=== PATIENT | male | born 1940 | race Caucasian/White ===

== ENCOUNTER → 2018-02-02 09:43 | Outpatient (BNVA) | payer MEDICARE, OTHER, SELFPAY | PROVIDERS: Visit Provider Urology | DX: N40.0 Benign prostatic hyperplasia without lower urinary tract symptoms (principal); R31.9 Hematuria, unspecified; R97.20 Elevated prostate specific antigen [PSA] | CPT/HCPCS: 99213 ==

== ENCOUNTER 2018-08-03 11:28 | Outpatient (CLI) | payer MEDICARE, OTHER, SELFPAY ==
[2018-08-06 09:45] LABS: PSA, Diagnostic 1.9 ng/ml (0-6.5)
== END 2018-08-03 11:48 ==
PROVIDERS: PCP Emergency Medicine; Visit Provider Urology
DX: R97.20 Elevated prostate specific antigen [PSA] (principal)
CPT/HCPCS: 36415; 84153

== ENCOUNTER → 2018-08-07 10:52 | Outpatient (BNVA) | payer MEDICARE, OTHER, SELFPAY | PROVIDERS: PCP Emergency Medicine; Visit Provider Urology | DX: R97.20 Elevated prostate specific antigen [PSA] (principal); R31.29 Other microscopic hematuria | CPT/HCPCS: 99213 ==

== ENCOUNTER 2018-09-21 09:05 | Outpatient (CLI) | payer MEDICARE, OTHER, SELFPAY ==
--- NOTE | 2018-09-21 14:19 | DI.RAD_ITS ---
SYMPTOMS/DIAGNOSIS: DYSPNEA ON EXERTION, R06.09 CHEST X-RAY, PA AND LATERAL: Comparison is 09/15/15. The heart is normal in size. The lungs are clear. The mediastinal structures and pleura appear intact. SUMMARY: Normal chest.
== END 2018-09-21 09:25 ==
PROVIDERS: PCP Emergency Medicine; Visit Provider Emergency Medicine
DX: R06.09 Other forms of dyspnea (principal)
CPT/HCPCS: 71046

== ENCOUNTER 2018-10-08 10:31 | Outpatient (CLI) | payer MEDICARE, OTHER, SELFPAY ==
--- NOTE | 2018-10-08 10:29 | DI.RAD_ITS ---
SYMPTOM/DIAGNOSIS: KNEE PAIN RIGHT KNEE: Comparison is made with 03/30/15. There is a declivity in the medial femoral condyle consistent with an osteochondral defect. There is also narrowing of the medial femoral tibial joint space. There is mild spurring at the patellofemoral joint. No joint effusion is seen. 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
== END 2018-10-08 10:51 ==
PROVIDERS: PCP Emergency Medicine; Referring Provider Emergency Medicine; Visit Provider Student in an Organized Health Care Education/Training Program
DX: M25.561 Pain in right knee (principal); M24.10 Other articular cartilage disorders, unspecified site
CPT/HCPCS: 20610; 73562; 99214; J1040

== ENCOUNTER 2018-11-19 14:33 | Outpatient (CLI) | payer MEDICARE, OTHER, SELFPAY ==
--- NOTE | 2018-11-19 14:10 | DI.RAD_ITS ---
SYMPTOM/DIAGNOSIS: LEFT HIP PAIN LEFT HIP: Two views. In the left hip there is moderate narrowing of the joint space. Subchondral sclerosis is also noted. No acute fracture or dislocation is seen. The soft tissues are unremarkable. There are degenerative changes seen in the lower lumbosacral spine. IMPRESSION: Mild to moderate degenerative changes in the left hip.
== END 2018-11-19 14:53 ==
PROVIDERS: PCP Emergency Medicine; Referring Provider Emergency Medicine; Visit Provider Student in an Organized Health Care Education/Training Program
DX: M95.8 Other specified acquired deformities of musculoskeletal system; M25.552 Pain in left hip; M16.12 Unilateral primary osteoarthritis, left hip; Z98.890 Other specified postprocedural states; M17.11 Unilateral primary osteoarthritis, right knee; M70.62 Trochanteric bursitis, left hip
CPT/HCPCS: 99213; 73502

== ENCOUNTER → 2018-12-14 10:47 | Outpatient (BNVA) | payer MEDICARE, OTHER, SELFPAY | PROVIDERS: PCP Emergency Medicine; Referring Provider Emergency Medicine; Visit Provider Student in an Organized Health Care Education/Training Program | DX: M16.12 Unilateral primary osteoarthritis, left hip | CPT/HCPCS: 99213 ==

== ENCOUNTER → 2019-03-04 10:44 | Outpatient (BNVA) | payer MEDICARE, OTHER, SELFPAY | PROVIDERS: PCP Emergency Medicine; Referring Provider Emergency Medicine; Visit Provider Student in an Organized Health Care Education/Training Program | DX: M16.12 Unilateral primary osteoarthritis, left hip (principal) | CPT/HCPCS: 99213 ==

== ENCOUNTER → 2019-03-15 15:17 | Outpatient (BNVA) | payer MEDICARE, OTHER, SELFPAY | PROVIDERS: PCP Emergency Medicine; Referring Provider Emergency Medicine; Visit Provider Urology | DX: R97.20 Elevated prostate specific antigen [PSA] (principal); R31.9 Hematuria, unspecified | CPT/HCPCS: 81003; 99213 ==

== ENCOUNTER 2019-03-27 11:22 | Outpatient (CLI) | payer MEDICARE, OTHER, SELFPAY ==
[2019-03-27 12:16] LABS: Anion Gap 8.5 mmol/L (3-11); BUN 32 mg/dL (7-18); CO2 27.5 mmol/L (21.0-32.0); CREATININE 2.14 mg/dL (0.70-1.30); Calcium 8.8 mg/dL (8.5-10.1); Chloride 106 mmol/L (98-107); Estimated GFR 29.88 (mL/min/1.73m2); Glucose 115 mg/dL (74-106); Potassium 4.6 mmol/L (3.5-5.1); Sodium 142 mmol/L (136-145)
== END 2019-03-27 11:42 ==
PROVIDERS: PCP Emergency Medicine; Referring Provider Urology; Visit Provider Emergency Medicine
DX: I10 Essential (primary) hypertension (principal); R97.20 Elevated prostate specific antigen [PSA]; N40.0 Benign prostatic hyperplasia without lower urinary tract symptoms
CPT/HCPCS: 36415; 80048; 84153

== ENCOUNTER 2019-04-12 14:23 | Outpatient (CLI) | payer MEDICARE, OTHER, SELFPAY ==
[2019-04-12 15:26] LABS: Bilirubin Negative (Negative); Blood Small (Negative); Clarity Clear (Clear); Glucose Negative (Negative); Ketones Negative (Negative); Leukocyte Esterase Negative (Negative); Nitrite Negative (Negative); Specific Gravity 1.015 (1.005-1.025); Urobilinogen 0.2 EU/dL (Up TO 0.2)
[2019-04-12 15:46] LABS: Anion Gap 8.4 mmol/L (3-11); BUN 36 mg/dL (7-18); CO2 28.6 mmol/L (21.0-32.0); CREATININE 2.19 mg/dL (0.70-1.30); Calcium 8.7 mg/dL (8.5-10.1); Chloride 106 mmol/L (98-107); Glucose 108 mg/dL (74-106); Potassium 4.2 mmol/L (3.5-5.1); Sodium 143 mmol/L (136-145)
[2019-04-12 15:51] LABS: Bacteria Negative HPF (Negative); C & S Indicated? No; Casts Negative LPF (Negative); Crystals Negative HPF (Negative); Epithelial Cells Negative HPF (Negative); Mucus Negative (Negative); Other Cells Negative (Negative); WBC Negative HPF (0-5)
== END 2019-04-12 14:43 ==
PROVIDERS: PCP Emergency Medicine; Visit Provider Emergency Medicine
DX: I10 Essential (primary) hypertension (principal); R31.9 Hematuria, unspecified; R30.0 Dysuria
CPT/HCPCS: 36415; 80048; 81003; 81015

== ENCOUNTER → 2019-05-10 09:45 | Outpatient (BNVA) | payer MEDICARE, OTHER, SELFPAY | PROVIDERS: PCP Emergency Medicine; Referring Provider Emergency Medicine; Visit Provider Surgery | DX: K42.9 Umbilical hernia without obstruction or gangrene (principal) | CPT/HCPCS: 99214 ==

== ENCOUNTER → 2019-05-16 09:48 | Outpatient (BNVA) | payer MEDICARE, OTHER, SELFPAY | PROVIDERS: PCP Emergency Medicine; Referring Provider Emergency Medicine; Visit Provider Student in an Organized Health Care Education/Training Program | DX: R69 Illness, unspecified (principal) ==

== ENCOUNTER 2019-05-16 09:55 | Outpatient (CLI) | payer MEDICARE, OTHER, SELFPAY ==
[2019-05-16 11:17] LABS: Bilirubin Negative (Negative); Blood Negative (Negative); Clarity Clear (Clear); Glucose Negative (Negative); Ketones Trace mg/dL (Negative); Leukocyte Esterase Trace (Negative); Nitrite Negative (Negative); Specific Gravity 1.025 (1.005-1.025); Urobilinogen 0.2 EU/dL (Up TO 0.2)
[2019-05-16 11:27] LABS: Anion Gap 9.1 mmol/L (3-11); BUN 31 mg/dL (7-18); CO2 27.9 mmol/L (21.0-32.0); CREATININE 1.66 mg/dL (0.70-1.30); Calcium 8.9 mg/dL (8.5-10.1); Chloride 106 mmol/L (98-107); Estimated GFR 39.96 (mL/min/1.73m2); Glucose 107 mg/dL (74-106); Potassium 4.3 mmol/L (3.5-5.1); Sodium 143 mmol/L (136-145)
[2019-05-16 11:39] LABS: WBC 0-2 HPF (0-5)
[2019-05-16 11:40] LABS: Bacteria Negative HPF (Negative); C & S Indicated? No; Casts Negative LPF (Negative); Crystals Negative HPF (Negative); Epithelial Cells Rare HPF (Negative); Mucus Negative (Negative)
== END 2019-05-16 10:15 ==
PROVIDERS: PCP Emergency Medicine; Visit Provider Emergency Medicine
DX: I10 Essential (primary) hypertension (principal); R30.0 Dysuria; K42.9 Umbilical hernia without obstruction or gangrene; M17.11 Unilateral primary osteoarthritis, right knee; M25.561 Pain in right knee; M70.62 Trochanteric bursitis, left hip
CPT/HCPCS: 20610; 36415; 80048; 99213; 81003; 81015; J1040

== ENCOUNTER 2019-05-22 10:44 | Outpatient (CLI) | payer MEDICARE, OTHER, SELFPAY | END 2019-05-22 11:04 | PROVIDERS: PCP Emergency Medicine; Visit Provider Surgery | DX: K42.9 Umbilical hernia without obstruction or gangrene (principal); Z01.818 Encounter for other preprocedural examination | CPT/HCPCS: 93005; 93010 ==

== ENCOUNTER 2019-05-29 07:16 | Day surgery (SDC) | payer MEDICARE, OTHER, SELFPAY ==
[2019-05-22 10:54] VITALS: BP 168/79; PULSE 77; RESP 18; TEMP 37.1; O2SAT 97
--- NOTE | 2019-05-29 06:51 | W.PM.OP ---
Date of service: 05/29/19 Time of Service: 10:36 Operative Note Operative Note DATE OF PROCEDURE: 05/29/19 PRE-OP DIAGNOSIS: Umbilical hernia POST-OP DIAGNOSIS: same PROCEDURE: Primary Umbilical Hernia repair SURGEON: Kenzie Mendiola MAIL ORDER BILLER: Alla Seo ANESTHESIA: regional (Bilateral rectus blocks), local (3 cc of 1% Lidocaine and 10 cc of 0.25% Bupivocaine) and other (General with LMA/ ASA 3/ Tarun Rajput, ANALISA) ESTIMATED BLOOD LOSS: 3 PATHOLOGY: none sent COMPLICATIONS: None Patient was transported to: PACU Patient's condition: stable Indications: 78 year old male with multiple chronic medical issues who has a easily reducible umbilical hernia. It is symptomatic Surgery was discussed with him Hernia repair with mesh Risks, benefits and complications have been reviewed. Complications include but are not limited to bleeding, pain, infection, injury to underlying structures like bowel and adverse reaction to the medication. Questions were entertained and answered to their satisfaction and they wished to proceed. No guarantees were given or implied. Findings: Small <1 cm umbilical hernia defect Procedure Description: After informed consent was obtained the patient was taken to the operating room and placed in a supine position. Monitors and SCDs were applied and a timeout was done. The patient's name, date of , procedure type, procedure site, allergies to medications, preoperative antibiotic, and DVT prophylaxis were all reviewed. Fire risk was assessed. Next anesthesia did a bilateral rectus block under ultrasound guidance. Please see their separate dictation. Once anesthesia was done the abdomen was prepped and draped in a sterile surgical fashion. 1% Lidocaine was injected into the dermis just above the umbilicus. An incision was made with a 10 blade above the umbilicus. There was minimal subcutaneous fat. Dissection was done with scissors through the the umbilical stalk. The hernia defect was identified and measured <1 cm. The hernia sac was opened and the peritoneum was swept for adhesions. No adhesions were noted. The fascia was closed with 2-0 proline figure of eight stitch. 2-0 Vicryl was used to secure the umbilicus down to the fascia. The dermis was re-approximated with a running 4-0 Vicryl. The skin was cleaned and dried and skin affix was applied. The patient was woken up and taken back to recovery in stable condition. There were no immediate complications. Sponge, instrument and needle counts were correct at the end of the case x2.
--- NOTE | 2019-05-29 06:52 | W.PM.DSUDISC ---
Discharge Plan Disposition Patient Disposition: HOME Condition: Good Discharge Details Reason For Visit: Umbilical hernia Attending Provider: Kenzie Mendiola Primary Care Provider: Tony Farrar Home Meds and New Rx's Prescriptions: Continued Symbicort 80-4.5 mcg/actuation HFA aerosol inhaler 2 puff IH BID RF: 0 famotidine 20 mg tablet 20 mg PO BID Qty: 180 RF: 2 vitamin B complex [B-Complex] 1 EACH tablet 1 tab PO DAILY RF: 0 omega-3 fatty acids-fish oil 1 EACH capsule 1 cap PO QAM RF: 0 potassium gluconate 99 MG tablet 1 tab PO DAILY RF: 0 cholecalciferol (vitamin D3) [Vitamin D3] 2,000 UNIT capsule 2,000 unit PO DAILY RF: 0 acetaminophen [Tylenol Extra Strength] 500 MG tablet 500 mg PO PRN RF: 0 Medial OA Brace UD DAILY Qty: 1 RF: 0 furosemide [Lasix] 40 mg tablet 40 mg PO DAILY Qty: 90 RF: 3 terazosin 10 mg capsule 10 mg PO DAILY Qty: 90 RF: 4 finasteride [Proscar] 5 mg tablet 5 mg PO DAILY Qty: 90 RF: 4 Eliquis 5 mg tablet 5 mg PO BID Qty: 60 RF: 11 diltiazem HCl 180 mg capsule,extended release 24hr 180 mg PO BID Qty: 180 RF: 3 Discharge Instructions Instructions: Open Herniorrhaphy (DC) Additional Instructions: Activity at Home after surgery: 1. Make sure you walk outside at least 4 times per day 2. You should be able to climb a flight of stairs 3. No driving while in pain or taking pain medications 4. No strenuous activity or heavy lifting for 4 weeks (open surgery) Diet, Nutrition, & wound healin. Avoid alcohol until after you are recovered from your surgery 2. Make sure to eat plenty of lean protein (meat, fish, eggs, cottage cheese, beans) 3. Eat a variety of fruits and vegetables. Eat plenty of high fiber foods to avoid constipation. 4. Drink plenty of liquids to stay hydrated and avoid constipation Pain Medications: 1. Tylenol 1000 mg every 6 hours as needed 2. If a narcotic has been prescribed take as directed only for breakthrough pain For Constipation: 1. Take Milk of Magnesia or MiraLax as needed for constipation Other: 1. You may shower daily. Do not scrub the incisions 2. Do not soak the incisions for 1 week 3. You may alternate ice and heat as needed for pain and swelling Wound Care: 1. Keep the incisions clean and dry Please call our office if you develop: 1. Fevers >101.5 2. Nausea or Vomiting 3. Worsening pain 4. Redness and thick discharge from the wounds If after hours please call the Hospital at and ask to speak to the on-call surgeon Activity:: Activity as Tolerated Diet:: no lifting >20 lb x 4 weeks Discharge Orders Discharge Orders: Discharge Order (Routine); Ordered 05/29/19 Ordered By: Kenzie Mendiola DS: Diagnosis Discharge Diagnosis (1) Umbilical hernia: Status: Chronic
[2019-05-29 07:30] VITALS: BP 152/66; PULSE 77; RESP 18; TEMP 36.5; O2SAT 97
[2019-05-29] MEDS: Lactated Ringers 1,000 ML 80 ML IV (08:08)
[2019-05-29] MEDS: ceFAZolin 2 GM/50 ML BAG IVPB (10:04)
[2019-05-29] MEDS: Lidocaine 1% Pres-Free 5 ML VIAL (10:30)
[2019-05-29] MEDS: Bupivacaine 0.25% Pres-Free 30 ML VIAL (10:30)
[2019-05-29 10:44] VITALS: BP 120/52; PULSE 64; RESP 22; TEMP 36.4; O2SAT 93
[2019-05-29 10:49] VITALS: BP 116/50; PULSE 61; RESP 20; TEMP 36.6; O2SAT 95
[2019-05-29 10:54] VITALS: BP 116/58; PULSE 63; RESP 18; TEMP 36.6; O2SAT 95
[2019-05-29 11:08] VITALS: BP 120/44; PULSE 64; RESP 22; TEMP 36.6; O2SAT 95
[2019-05-29 11:50] VITALS: BP 129/56; PULSE 65; RESP 18; TEMP 36.4; O2SAT 94
== END 2019-05-29 12:40 | disposition home or self-care (01) ==
LOC: SUR 07:17
PROVIDERS: PCP Emergency Medicine; Visit Provider Surgery
PROC: (CPT 49585; principal; 2019-05-29 10:00)
DX: K42.9 Umbilical hernia without obstruction or gangrene (principal); G89.18 Other acute postprocedural pain; I10 Essential (primary) hypertension; J44.9 Chronic obstructive pulmonary disease, unspecified; G47.33 Obstructive sleep apnea (adult) (pediatric); Z99.89 Dependence on other enabling machines and devices
CPT/HCPCS: 49585; 76942; J0690; J1100; J2405; J2704

== ENCOUNTER → 2019-06-07 10:49 | Outpatient (BNVA) | payer MEDICARE, OTHER, SELFPAY | PROVIDERS: PCP Emergency Medicine; Referring Provider Emergency Medicine; Visit Provider Surgery | DX: Z48.815 Encounter for surgical aftercare following surgery on the digestive system (principal); Z87.19 Personal history of other diseases of the digestive system; I12.9 Hypertensive chronic kidney disease with stage 1 through stage 4 chronic kidney disease, or unspecified chronic kidney disease; N18.9 Chronic kidney disease, unspecified; J44.9 Chronic obstructive pulmonary disease, unspecified; F17.210 Nicotine dependence, cigarettes, uncomplicated ==

== ENCOUNTER 2019-06-13 00:41 | Outpatient (CLI) | payer MEDICARE, OTHER, SELFPAY ==
--- NOTE | 2019-06-13 06:45 | DI.RAD_ITS ---
EXAM: RF JOINT INJECTION FLUORO GUID CLINICAL HISTORY: L HIP INJ UNDER FLUORO, ARTHRITIS LT HIP, M16.12. TECHNIQUE: 2D and realtime digital imaging was performed. COMPARISON: No exams were available for comparison FINDINGS: Fluoroscopy was provided for Dr. Lincoln for guidance with performing a left hip injection. Please see procedure note for details. Fluoro Time: 0.08 minutes
[2019-06-13] MEDS: Omnipaque 300 MG/ML 10 ML BTL IJ (15:40)
[2019-06-13] MEDS: Bupivacaine 0.5% Pres-Free 10 ML VIAL IJ (15:41)
[2019-06-13] MEDS: methylPREDNISolone ACETATE 80 MG/ML VIAL IM (15:42)
--- NOTE | 2019-06-13 21:25 | W.PROCNOTE ---
Date of service: 06/13/19 Time of Service: 15:02 Procedure Note Date of procedure: 06/13/19 Procedure: Left Hip Injection with Fluoroscopic Guidance Surgeon/Proceduralist/Physician: David Lincoln Procedure Diagnosis: Left Hip Osteoarthritis Procedure Indications: Nicolas has had persistent pain of the LEFT hip and groin. Noninvasive measures have been tried. To serve as both diagnostic and therapeutic, an injection under fluoroscopy was recommended. I had discussed the risks of the procedure and the patient elected to proceed. Procedure Description: Nicolas was greeted in the flouroscopy room. The correct side was identified and the consent was reviewed with the patient and signed. The patient was then placed in the supine position on the fluoroscopy table. The LEFT hip was then prepped with Chloraprep. The anterolateral injection starting point was identiifed by bony landmarks and fluoroscopy. The skin and soft tissue in the tract of the injection was anesthetized with 1% Lidocaine. A spinal needle was then inserted deep into the hip joint at the level of the lateral femoral neck under fluoroscopic guidance. A small amount of Omnipaque solution was injected to confirm intraarticular placement. Once confirmed, the hip was injected with 6cc of 0.5% Bupivicaine and 80mg of Depo-Medrol. A bandaid was placed on the injection site. The patient tolerated the procedure well and noted improvement in pre-injection pain.
== END 2019-06-13 01:01 ==
PROVIDERS: PCP Emergency Medicine; Visit Provider Student in an Organized Health Care Education/Training Program
DX: M16.12 Unilateral primary osteoarthritis, left hip (principal)
CPT/HCPCS: 20610; 77002; J1040

== ENCOUNTER 2019-08-29 08:26 | Outpatient (CLI) | payer MEDICARE, OTHER, SELFPAY ==
--- NOTE | 2019-08-29 08:30 | DI.RAD_ITS ---
EXAM: XR CHEST 2V PA LATERAL CLINICAL HISTORY: dyspnea on exertion, r06.00 TECHNIQUE: 2D digital imaging was performed. COMPARISON: CR XR CHEST 2V PA LATERAL from 09/21/2018 FINDINGS: MEDIASTINUM: Normal. HEART: Normal. PULMONARY VASCULATURE: Normal. LUNGS: Clear. PLEURAL SPACE: No pleural effusion or pneumothorax. BONE:Degenerative changes in the thoracic spine. IMPRESSION: No acute pulmonary findings. DATA REPOSITORY: RADIATION DOSE DELIVERED:
[2019-08-29 14:15] LABS: HCT 42.9 % (40.0-50.0); HGB 14.7 g/dL (13.5-17.5); Mean Corp. HGB Concentration 34.3 g/dL (32.0-36.0); Mean Corpuscular Hemoglobin 37.7 pg (27.0-33.0); Mean Platelet Volume 11.1 fL (8.0-11.0); Platelet Count 169 x1000/uL (130-400); RBC Distribution Width 11.5 % (11.8-14.1)
[2019-08-29 16:36] LABS: Anion Gap 9.3 mmol/L (3-11); BUN 29 mg/dL (7-18); CO2 27.7 mmol/L (21.0-32.0); CREATININE 1.94 mg/dL (0.70-1.30); Calcium 8.8 mg/dL (8.5-10.1); Chloride 105 mmol/L (98-107); Estimated GFR 33.38 (mL/min/1.73m2); Glucose 109 mg/dL (74-106); Potassium 4.2 mmol/L (3.5-5.1); Sodium 142 mmol/L (136-145)
[2019-08-29 17:53] LABS: NT-proBNP 1693 pg/mL (<300)
== END 2019-08-29 08:46 ==
PROVIDERS: PCP Emergency Medicine; Visit Provider Emergency Medicine
DX: I50.9 Heart failure, unspecified (principal); R06.09 Other forms of dyspnea; I10 Essential (primary) hypertension
CPT/HCPCS: 36415; 80048; 85027; 71046; 83880

== ENCOUNTER 2019-09-03 00:38 | Outpatient (CLI) | payer MEDICARE, OTHER, SELFPAY ==
--- NOTE | 2019-09-03 12:36 | DI.US_ITS ---
APPROVED REPORT EXAM: Comprehensive 2D, Doppler, and color-flow Echocardiogram Patient Location: Out-Patient Zipper Joiner: Maile Sarmiento RDCS (AE) Indications: CHF Other Information Study Quality: Adequate Conclusion Left Ventricle : The left ventricle is normal size. The left ventricular systolic function is normal. The left ventricular ejection fraction is within the normal range. There is normal left ventricular wall thickness. There is normal LV segmental wall motion. The left ventricular diastolic function is normal. LVEF is 50-55%. Right Ventricle : The right ventricle is normal size. The right ventricular systolic function is norm al. The RVSP is 35 mmHg. Atria : The left atrium size is normal. The right atrium size is normal. Aortic Valve : The Aortic valve is sclerotic. Aortic valve is trileaflet. There is no aortic valvular stenosis. Mild aortic regurgitation. Mitral Valve : There is mitral annular calcification. No evidence of mitral valve stenosis. Mild to m oderate mitral regurgitation. Tricuspid Valve : The tricuspid valve is normal in structure. There is no tricuspid valve stenosis. M ild tricuspid regurgitation. Great Vessels : The IVC collapses <50% with inspiration. Paired to echocardiogram from 11/25/2014: Mitral regurgitation has increased minimally. Wall motion Left Ventricle The left ventricle is normal size. The left ventricular systolic function is normal. The left ventric ular ejection fraction is within the normal range. There is normal left ventricular wall thickness. T here is normal LV segmental wall motion. The left ventricular diastolic function is normal. There is no ventricular septal defect visualized. LVEF is 50-55%. Right Ventricle The right ventricle is normal size. The right ventricular systolic function is normal. The RVSP is 35 mmHg. Atria The left atrium size is normal. The right atrium size is normal. The interatrial septum is intact wit h no evidence for an atrial septal defect. Aortic Valve The Aortic valve is sclerotic. Aortic valve is trileaflet. There is no aortic valvular stenosis. Mild aortic regurgitation. Mitral Valve There is mitral annular calcification. No evidence of mitral valve stenosis. Mild to moderate mitral regurgitation. Tricuspid Valve The tricuspid valve is normal in structure. There is no tricuspid valve stenosis. Mild tricuspid regu rgitation. Pulmonic Valve The pulmonary valve is normal in structure. There is no pulmonic valvular stenosis. Trace pulmonic re gurgitation. Great Vessels The aortic root is normal in size. Ascending aorta is not well visualized. Aortic arch is not well vi sualized. The IVC collapses <50% with inspiration. Pericardium There is no pericardial effusion. There is no pleural effusion. 2D Dimensions IVSD d PLAX 0.98 cm M: 0.6-1.2 LV Vol A2C d MOD 101.6 mL LVPW d PLAX 0.95 cm M: 0.6 - 1.2 LV Vol A4C d MOD 119.0 mL LVID d PLAX 5.34 cm M: 4.2 - 5.8 LA vol/ BSA A2C s A-L 39.9 mL/m2 LVDs 4.00 cm M: 2.5 - 4.0 LA vol/ BSA A4C s A-L 50.9 mL/m2 Ao Root d 3.18 cm M: 3.1 - 3.7 LA Vol/ BSA Biplane s A-L 48.0 mL/m2 RA Area A4C 23.27 cm2 LA Area A4C s MOD 29.92 cm2 RA Vol/ BSA A4C s A-L 37.0 mL/m2 LA Area A2C s MOD 24.86 cm2 LV EF Teichholz 47.8 % LV EF A4C MOD 54.7 % LVEF (Mcmahan's) 53.16 % M: 52 - 72 LV EF A2C MOD 51.0 % LV Volume 82.79 mL M: 62 - 150 LV EF Biplane MOD 53.2 % LV Volume Index 40.98 mL/m2 M: 34 - 74 SV 65.70 mL LV Vol Biplane MOD 110.8 mL SV Index 32.00 mL/m2 FS 24.25 % M-Mode TAPSE 2.34 cm (M/F) >1.7 LV Diastology MV E' medial 0.109 (>0.07 m/s) MV E Vmax 1.20 (0.4-1.3 m/s) LV E/e MED 11.05 (<14) MV E' lateral 0.125 (>0.1 m/s) LV E/e LAT 9.60 (<14) MV E/E' medial 11.09 MV E/E' lateral 9.62 Aortic Valve LVOT Area 3.16 cm2 AoV Area Vmax 2.31 cm2 LVOT Vmax 0.91 m/s AoV Area/ BSA (Vmax) 1.14 cm2/m2 LVOT Mean Lukasz. 0.59 m/s MISTY Mean Lukasz. 2.13 cm2 LVOT Peak Grad 3.3 mmHg MISTY Mean Lukasz. Index 1.05 cm2/m2 LVOT Mean Grad 1.7 mmHg AR DT 1512 msec LVOT VTI 0.186 m AR PHT 438 msec LVOT Diam s 2.00 cm (M/F) 1.5-2.5 AoV Vmax 1.24 (0.5-1.3 m/s) Velocity Ratio 0.73 AoV Mean Lukasz. 0.88 m/s AoV Peak Grad 6.2 mmHg LVOT SV 58.72 mL AoV Mean Grad 3.5 (<5 mmHg) AoV VTI 0.263 (0.18-0.25 m) AoV Area VTI 2.23 (2.5-4.5 cm2) AoV Area/ BSA (VTI) 1.10 cm/m2 Mitral Valve MV DT 194 (160-240 msec) MR PISA Radius 1.04 cm MV PHT 56 msec MR Aliasing Velocity 0.35 m/s MV Area PHT 3.92 cm2 MR PISA 6.79 cm2 Pulmonary Valve PV Vmax 0.99 (0.5-1.5 m/s) RVOT Peak Gr. 2.29 mmHg PV Peak Grad 3.9 mmHg RVOT Mean Gr. 1.15 mmHg PV Mean Grad 2.2 mmHg RVOT VTI 0.159 m PV VTI 0.183 m RVOT Vmax 0.76 m/s Tricuspid Valve TR Peak Grad 27.6 mmHg TR Vmax 2.63 m/s RA Pressure 8.00 mmHg RVSP (TR) 35.6 mmHg
== END 2019-09-03 00:58 ==
PROVIDERS: PCP Emergency Medicine; Visit Provider Emergency Medicine
DX: I50.9 Heart failure, unspecified (principal); I34.0 Nonrheumatic mitral (valve) insufficiency; R06.09 Other forms of dyspnea; I10 Essential (primary) hypertension
CPT/HCPCS: 93306

== ENCOUNTER 2019-09-03 01:17 | Outpatient (CLI) | payer MEDICARE, OTHER, SELFPAY ==
[2019-09-03 14:50] LABS: Vitamin B12 506 pg/mL (193-986)
[2019-09-03 14:52] LABS: Folate > 20.0 ng/mL (8.6-20.0)
[2019-09-06 09:05] LABS: Methylmalonic Acid 0.28 nmol/mL (<=0.40)
== END 2019-09-03 01:37 ==
PROVIDERS: PCP Emergency Medicine; Visit Provider Emergency Medicine
DX: D75.89 Other specified diseases of blood and blood-forming organs (principal); Z51.81 Encounter for therapeutic drug level monitoring; I50.9 Heart failure, unspecified; I34.0 Nonrheumatic mitral (valve) insufficiency; R06.09 Other forms of dyspnea; I10 Essential (primary) hypertension
CPT/HCPCS: 36415; 80186; 93306; 82607; 82746

== ENCOUNTER → 2019-09-17 14:43 | Outpatient (BNVA) | payer MEDICARE, OTHER, SELFPAY | PROVIDERS: PCP Emergency Medicine; Referring Provider Emergency Medicine; Visit Provider Urology | DX: R39.89 Other symptoms and signs involving the genitourinary system (principal); R97.20 Elevated prostate specific antigen [PSA]; I12.9 Hypertensive chronic kidney disease with stage 1 through stage 4 chronic kidney disease, or unspecified chronic kidney disease; N18.9 Chronic kidney disease, unspecified | CPT/HCPCS: 81003; 99213 ==

== ENCOUNTER 2019-09-17 18:23 | Outpatient (REF) | payer MEDICARE, OTHER, SELFPAY ==
[2019-09-18 09:52] LABS: PSA, Diagnostic 1.4 ng/mL (0.0-6.5)
== END 2019-09-17 18:43 ==
LOC: LBN 18:23
PROVIDERS: PCP Emergency Medicine; Visit Provider Urology
DX: R97.20 Elevated prostate specific antigen [PSA] (principal)
CPT/HCPCS: 84153

== ENCOUNTER → 2019-09-19 08:38 | Outpatient (BNVA) | payer MEDICARE, OTHER, SELFPAY | PROVIDERS: PCP Emergency Medicine; Referring Provider Emergency Medicine; Visit Provider Internal Medicine Cardiovascular Disease | DX: I48.91 Unspecified atrial fibrillation (principal); N18.9 Chronic kidney disease, unspecified; G47.30 Sleep apnea, unspecified; I12.9 Hypertensive chronic kidney disease with stage 1 through stage 4 chronic kidney disease, or unspecified chronic kidney disease | CPT/HCPCS: 99204; 99443 ==

== ENCOUNTER → 2019-09-20 08:38 | Outpatient (BNVA) | payer MEDICARE, OTHER, SELFPAY | PROVIDERS: PCP Emergency Medicine; Referring Provider Emergency Medicine; Visit Provider Internal Medicine Cardiovascular Disease | DX: R69 Illness, unspecified (principal) ==

== ENCOUNTER → 2019-09-23 13:59 | Outpatient (BNVA) | payer MEDICARE, OTHER, SELFPAY | PROVIDERS: PCP Emergency Medicine; Referring Provider Emergency Medicine; Visit Provider Student in an Organized Health Care Education/Training Program | DX: M16.12 Unilateral primary osteoarthritis, left hip (principal); I10 Essential (primary) hypertension; Z98.890 Other specified postprocedural states | CPT/HCPCS: 99213 ==

== ENCOUNTER 2019-12-11 14:36 | Outpatient (REF) | payer MEDICARE, OTHER, SELFPAY ==
[2019-12-11 21:59] LABS: BUN 26 mg/dL (7-18); CREATININE 1.93 mg/dL (0.70-1.30); Calcium 8.8 mg/dL (8.5-10.1); Chloride 107 mmol/L (98-107); Estimated GFR 33.58 (mL/min/1.73m2); Glucose 143 mg/dL (74-106); NT-proBNP 2044 pg/mL (<300); Potassium 3.9 mmol/L (3.5-5.1); Sodium 146 mmol/L (136-145)
[2019-12-11 22:10] LABS: GGT 101 U/L (15-85)
== END 2019-12-11 14:56 ==
LOC: LBN 14:36
PROVIDERS: PCP Emergency Medicine; Visit Provider Emergency Medicine
DX: I50.9 Heart failure, unspecified (principal); E78.5 Hyperlipidemia, unspecified; I10 Essential (primary) hypertension
CPT/HCPCS: 80048; 82977; 83880

== ENCOUNTER 2020-01-20 15:46 | Outpatient (CLI) | payer MEDICARE, OTHER, SELFPAY ==
--- NOTE | 2020-01-20 15:00 | DI.RAD_ITS ---
EXAM: XR PELVIS AP CLINICAL HISTORY: preop TECHNIQUE: 2D digital imaging was performed. COMPARISON: CR XR hip LT complete AP pelvis from 11/19/2018 FINDINGS: There are severe degenerative changes of the left hip. There is severe joint space narrowing, periar ticular spurring and sclerosis. Subchondral cyst formation is also seen. There are moderate degener ative changes of the right hip. IMPRESSION: Severe degenerative changes of the left hip.
== END 2020-01-20 16:06 ==
PROVIDERS: PCP Emergency Medicine; Referring Provider Emergency Medicine; Visit Provider Student in an Organized Health Care Education/Training Program
DX: M16.11 Unilateral primary osteoarthritis, right hip (principal); M16.12 Unilateral primary osteoarthritis, left hip; I12.9 Hypertensive chronic kidney disease with stage 1 through stage 4 chronic kidney disease, or unspecified chronic kidney disease; N18.9 Chronic kidney disease, unspecified; J44.9 Chronic obstructive pulmonary disease, unspecified; F17.200 Nicotine dependence, unspecified, uncomplicated
CPT/HCPCS: 99213; 72170

== ENCOUNTER → 2020-04-07 11:33 | Outpatient (BNVA) | payer MEDICARE, OTHER, SELFPAY | PROVIDERS: PCP Emergency Medicine; Referring Provider Emergency Medicine; Visit Provider Internal Medicine Cardiovascular Disease | DX: I48.91 Unspecified atrial fibrillation (principal); R06.09 Other forms of dyspnea; Z79.01 Long term (current) use of anticoagulants; R60.0 Localized edema; I12.9 Hypertensive chronic kidney disease with stage 1 through stage 4 chronic kidney disease, or unspecified chronic kidney disease; N18.9 Chronic kidney disease, unspecified | CPT/HCPCS: 99214 ==

== ENCOUNTER 2020-07-07 16:46 | Outpatient (REF) | payer MEDICARE, OTHER, SELFPAY ==
[2020-07-07 21:30] LABS: Anion Gap 7.9 mmol/L (3-11); BUN 33 mg/dL (7-18); CO2 31.1 mmol/L (21.0-32.0); CREATININE 2.1 mg/dL (0.70-1.30); Calcium 8.8 mg/dL (8.5-10.1); Chloride 105 mmol/L (98-107); Estimated GFR 30.39 (mL/min/1.73m2); Glucose 119 mg/dL (74-106); NT-proBNP 1581 pg/mL (<300); Potassium 4.1 mmol/L (3.5-5.1); Sodium 144 mmol/L (136-145)
[2020-07-07 21:39] LABS: Hemoglobin A1C 5.3 % (<5.7)
== END 2020-07-07 16:47 | disposition home or self-care (01) ==
LOC: LBN 16:46
PROVIDERS: PCP Emergency Medicine; Visit Provider Emergency Medicine
DX: E11.9 Type 2 diabetes mellitus without complications (principal); R06.09 Other forms of dyspnea; D75.89 Other specified diseases of blood and blood-forming organs; I10 Essential (primary) hypertension; N18.9 Chronic kidney disease, unspecified
CPT/HCPCS: 80048; 83036; 83880

== ENCOUNTER → 2020-07-23 14:54 | Outpatient (BNVA) | payer MEDICARE, OTHER, SELFPAY | PROVIDERS: PCP Emergency Medicine; Referring Provider Emergency Medicine; Visit Provider Physical Therapy Assistant | DX: K62.5 Hemorrhage of anus and rectum (principal); I10 Essential (primary) hypertension; I48.91 Unspecified atrial fibrillation; Z79.01 Long term (current) use of anticoagulants | CPT/HCPCS: 99214 ==

== ENCOUNTER → 2020-10-06 10:45 | Outpatient (BNVA) | payer MEDICARE, OTHER, SELFPAY | PROVIDERS: PCP Emergency Medicine; Referring Provider Emergency Medicine; Visit Provider Internal Medicine Cardiovascular Disease | DX: I48.20 Chronic atrial fibrillation, unspecified (principal); N18.9 Chronic kidney disease, unspecified; R06.09 Other forms of dyspnea; R60.0 Localized edema; I34.0 Nonrheumatic mitral (valve) insufficiency; Z79.899 Other long term (current) drug therapy | CPT/HCPCS: 99214 ==

== ENCOUNTER 2020-11-13 04:13 | Outpatient (CLI) | payer MEDICARE, OTHER, SELFPAY ==
[2020-11-13 14:45] LABS: Abs Immature Grans 0.05 10^3/uL (0.0-0.06); Absolute Basophil Count 0.06 10^3/uL (0.0-0.2); Absolute Eosinophil Count 0.21 10^3/uL (0.0-0.7); Absolute Lymphocyte Count 2.07 10^3/uL (1.2-3.4); Absolute Monocyte Count 0.72 10^3/uL (0.1-0.8); Basophils % 0.6; Eosinophils % 2.1; HCT 41.4 % (40.0-50.0); HGB 13.8 g/dL (13.5-17.5); Immature Grans % 0.5; Lymphocytes % 21.1; MCH 36.8 pg (27.0-33.0); MCHC 33.3 % (32.0-36.0); MCV 110.4 fL (80-95); MPV 11.1 fL (8.0-11.0); Monocytes % 7.3; Neutrophils % 68.4; Nucleated RBC 0 %; Platelet Count 170 10^3/uL (130-400); RBC 3.75 10^6/uL (4.36-5.78); RDW 11.9 % (11.8-14.1); RDW-SD 48.9 fL; WBC 9.81 10^3/uL (4.4-10.8)
[2020-11-13 14:59] LABS: Diff Comment Diff Reviewed; Macrocytosis 2+
[2020-11-13 15:42] LABS: ALT 29 U/L (16-63); AST 21 U/L (15-37); Albumin 3.7 g/dL (3.4-5.0); Alkaline Phosphatase 135 U/L (46-116); Anion Gap 10.7 mmol/L (3-11); BUN 26 mg/dL (7-18); Bilirubin, Total 0.4 mg/dL (0.2-1.0); CO2 27.3 mmol/L (21.0-32.0); Calcium 9.2 mg/dL (8.5-10.1); Chloride 106 mmol/L (98-107); Estimated GFR 32.15 (mL/min/1.73m2); Glucose 125 mg/dL (74-106); NT-proBNP 1906 pg/mL (<300); Potassium 4.2 mmol/L (3.5-5.1); Sodium 144 mmol/L (136-145); Total Protein 6.7 g/dL (6.4-8.2)
== END 2020-11-13 04:14 | disposition home or self-care (01) ==
LOC: LBO 04:13
PROVIDERS: PCP Emergency Medicine; Visit Provider Emergency Medicine
DX: I50.9 Heart failure, unspecified (principal); I48.91 Unspecified atrial fibrillation; Z01.818 Encounter for other preprocedural examination
CPT/HCPCS: 36415; 80053; 83880; 85025

== ENCOUNTER 2020-11-13 04:51 | Outpatient (CLI) | payer MEDICARE, OTHER, SELFPAY ==
--- NOTE | 2020-11-13 14:53 | DI.RAD_ITS ---
Exam(s) XR CHEST 2V PA LATERAL EXAM: XR CHEST 2V PA LATERAL CLINICAL HISTORY: CHF. preop eval,.Z01.810,I50.9 TECHNIQUE: 2D digital imaging was performed. COMPARISON: CR XR CHEST 2V PA LATERAL from 08/29/2019 FINDINGS: MEDIASTINUM: Normal. HEART: Normal. PULMONARY VASCULATURE: Normal. LUNGS: Clear. PLEURAL SPACE: No pleural effusion or pneumothorax. BONE:Unremarkable for age. Flowing osteophytes. IMPRESSION: No acute abnormality. DATA REPOSITORY: RADIATION DOSE DELIVERED:
== END 2020-11-13 05:11 ==
PROVIDERS: PCP Emergency Medicine; Visit Provider Emergency Medicine
DX: Z01.810 Encounter for preprocedural cardiovascular examination; I50.9 Heart failure, unspecified; I48.91 Unspecified atrial fibrillation
CPT/HCPCS: 36415; 80053; 71046; 83880; 85025

== ENCOUNTER → 2020-11-17 13:38 | Outpatient (BNVA) | payer MEDICARE, OTHER, SELFPAY | PROVIDERS: PCP Emergency Medicine; Referring Provider Emergency Medicine; Visit Provider Internal Medicine Cardiovascular Disease | DX: M16.12 Unilateral primary osteoarthritis, left hip (principal); I48.91 Unspecified atrial fibrillation; I50.9 Heart failure, unspecified; E66.9 Obesity, unspecified; R60.0 Localized edema | CPT/HCPCS: 99214; 99213 ==

== ENCOUNTER → 2020-11-26 11:18 | Outpatient (BNVA) | payer MEDICARE, OTHER, SELFPAY | PROVIDERS: PCP Emergency Medicine; Referring Provider Emergency Medicine; Visit Provider Student in an Organized Health Care Education/Training Program | DX: M16.12 Unilateral primary osteoarthritis, left hip (principal) | CPT/HCPCS: 99214 ==

== ENCOUNTER → 2021-03-26 12:44 | Outpatient (BNVA) | payer MEDICARE, OTHER, SELFPAY | PROVIDERS: PCP Emergency Medicine; Visit Provider Internal Medicine Cardiovascular Disease | DX: I48.91 Unspecified atrial fibrillation (principal); N18.9 Chronic kidney disease, unspecified; R06.09 Other forms of dyspnea; I12.9 Hypertensive chronic kidney disease with stage 1 through stage 4 chronic kidney disease, or unspecified chronic kidney disease; Z79.01 Long term (current) use of anticoagulants | CPT/HCPCS: 99214 ==

== ENCOUNTER 2021-05-20 03:29 | Outpatient (CLI) | payer MEDICARE, OTHER, SELFPAY ==
[2021-05-20 15:46] LABS: Anion Gap 9.2 mmol/L (3-11); BUN 24 mg/dL (7-18); CO2 27.8 mmol/L (21.0-32.0); CREATININE 1.9 mg/dL (0.70-1.30); Calcium 9.2 mg/dL (8.5-10.1); Chloride 105 mmol/L (98-107); Estimated GFR 34.02 (mL/min/1.73m2); Glucose 105 mg/dL (74-106); NT-proBNP 5891 pg/mL (<300); Sodium 142 mmol/L (136-145)
== END 2021-05-20 03:30 | disposition home or self-care (01) ==
LOC: LBO 03:29
PROVIDERS: PCP Family Medicine; Visit Provider Emergency Medicine
DX: I50.9 Heart failure, unspecified (principal); I10 Essential (primary) hypertension
CPT/HCPCS: 36415; 80048; 83880

== ENCOUNTER → 2021-09-24 13:16 | Outpatient (BNVA) | payer MEDICARE, OTHER, SELFPAY | PROVIDERS: PCP Family Medicine; Visit Provider Internal Medicine Cardiovascular Disease | DX: I48.91 Unspecified atrial fibrillation (principal); I10 Essential (primary) hypertension | CPT/HCPCS: 99213 ==

== ENCOUNTER → 2021-10-27 13:18 | Outpatient (BNVA) | payer MEDICARE, OTHER, SELFPAY | PROVIDERS: PCP Family Medicine; Referring Provider Family Medicine; Visit Provider Nurse Practitioner Gerontology | DX: N40.1 Benign prostatic hyperplasia with lower urinary tract symptoms (principal); R35.0 Frequency of micturition; R97.20 Elevated prostate specific antigen [PSA] | CPT/HCPCS: 36415; 51798; 99214 ==

== ENCOUNTER 2021-10-27 16:11 | Outpatient (REF) | payer MEDICARE, OTHER, SELFPAY ==
[2021-10-28 19:12] LABS: PSA, Screening 1.3 ng/mL (<=6.5)
== END 2021-10-27 16:12 | disposition home or self-care (01) ==
LOC: LBN 16:11
PROVIDERS: PCP Family Medicine; Visit Provider Nurse Practitioner Gerontology
DX: N40.0 Benign prostatic hyperplasia without lower urinary tract symptoms (principal); R97.20 Elevated prostate specific antigen [PSA]; Z12.5 Encounter for screening for malignant neoplasm of prostate
CPT/HCPCS: 84153

== ENCOUNTER → 2022-04-27 14:13 | Outpatient (BNVA) | payer MEDICARE, OTHER, SELFPAY | PROVIDERS: PCP Family Medicine; Referring Provider Family Medicine; Visit Provider Nurse Practitioner Gerontology | DX: N40.1 Benign prostatic hyperplasia with lower urinary tract symptoms (principal); R39.89 Other symptoms and signs involving the genitourinary system; R97.20 Elevated prostate specific antigen [PSA] | CPT/HCPCS: 36415; 51798; 99213 ==

== ENCOUNTER 2022-04-27 17:37 | Outpatient (REF) | payer MEDICARE, OTHER, SELFPAY ==
[2022-04-28 09:18] LABS: PSA, Screening 1.3 ng/mL (<=6.5)
== END 2022-04-27 17:38 | disposition home or self-care (01) ==
LOC: LBN 17:37
PROVIDERS: PCP Family Medicine; Visit Provider Nurse Practitioner Gerontology
DX: N40.0 Benign prostatic hyperplasia without lower urinary tract symptoms (principal); Z12.5 Encounter for screening for malignant neoplasm of prostate
CPT/HCPCS: 84153

== ENCOUNTER 2022-05-25 15:58 | Outpatient (CLI) | payer MEDICARE, OTHER, SELFPAY ==
[2022-05-25 15:58] LABS: Anion Gap 7.7 mmol/L (3-11); BUN 27 mg/dL (7-18); CO2 30.3 mmol/L (21.0-32.0); CREATININE 2.1 mg/dL (0.70-1.30); Calcium 9.1 mg/dL (8.5-10.1); Chloride 104 mmol/L (98-107); Estimated GFR 30.47 (mL/min/1.73m2); Glucose 130 mg/dL (74-106); NT-proBNP 5675 pg/mL (<300); Potassium 3.7 mmol/L (3.5-5.1); Sodium 142 mmol/L (136-145)
== END 2022-05-25 15:59 | disposition home or self-care (01) ==
LOC: LBO 15:59
PROVIDERS: PCP Family Medicine; Visit Provider Internal Medicine Hematology & Oncology
DX: E87.1 Hypo-osmolality and hyponatremia (principal); R06.00 Dyspnea, unspecified
CPT/HCPCS: 36415; 80048; 83880

== ENCOUNTER 2022-09-23 08:39 | Outpatient (CLI) | payer MEDICARE, OTHER, SELFPAY ==
--- NOTE | 2022-09-23 08:30 | RT.EKG_ITS ---
APPROVED REPORT Exam: Resting ECG Reason for Exam: afib Patient Location: O HR:72 bpm ECG Measurements Heart Rate 72 AXIS MD [id number] P [id number] QRSd 104 QRS 18 QT 419 T 32 QTc 459 Conclusion Atrial fibrillation...V-rate 57- 89, irreg A-activity Ventricular premature complex...V complex w/ short R-R interval
== END 2022-09-23 08:40 | disposition home or self-care (01) ==
LOC: DI.CARD 08:41
PROVIDERS: PCP Family Medicine; Visit Provider Internal Medicine Cardiovascular Disease
DX: I48.91 Unspecified atrial fibrillation (principal)
CPT/HCPCS: 93010

== ENCOUNTER → 2022-09-23 13:26 | Outpatient (BNVA) | payer MEDICARE, OTHER, SELFPAY | PROVIDERS: PCP Family Medicine; Visit Provider Internal Medicine Cardiovascular Disease | DX: I48.21 Permanent atrial fibrillation (principal); Z79.01 Long term (current) use of anticoagulants | CPT/HCPCS: 93005; 99214 ==

== ENCOUNTER 2022-10-17 02:32 | Outpatient (CLI) | payer MEDICARE, OTHER, SELFPAY ==
--- NOTE | 2022-10-17 08:15 | DI.CT_ITS ---
Exam(s) CT ABDOMEN PELVIS W EXAM: CT ABDOMEN PELVIS W CLINICAL HISTORY: chronic diarrhea,k52.9 TECHNIQUE: Imaging Protocol: Axial computed tomography images with coronal and sagittal reformatted images were created and reviewed CONTRAST MATERIAL: Intravenous: Omnipaque 350 Contrast volume:50 mL Oral: Yes COMPARISON: CT ABD PELVIS WO CONTRAST from 06/16/2017 FINDINGS: The examination is limited due to patient motion artifact. ABDOMEN: Lung Bases: Mild cardiomegaly. Liver: Normal density. No measurable mass. Portal, Superior Mesenteric, and Splenic Veins: Grossly unremarkable. Gallbladder and Biliary Tract: There is diffuse thickening of the wall of the gallbladder. No gallst ones are present. There is no biliary ductal dilatation. The gallbladder wall measures 7 mm in thic kness. Pancreas: There is fatty atrophy of the pancreas. No evidence of a pancreatic mass. Spleen: Normal. Adrenals: No masses seen. Kidneys: Normal size, contour and axis. No radiodense stones or obstructive uropathy. There is a 2.6 cm well-circumscribed hypodense lesion in the inferior pole of the right kidney. There is a 1.1 cm h ypodense lesion in the inferior pole of the left kidney. These appear to represent cysts. There are several compromise for evaluation secondary to patient motion artifact. Abdominal Aorta: Abdominal portion non-dilated. Atherosclerosis. Bowel: Diverticulosis of the colon, but no evidence of acute diverticulitis. Appendix is unremarkabl e. There is no evidence of bowel obstruction or bowel wall thickening. Peritoneal Cavity: No ascites, collection or mesenteric inflammatory response. No free air. Lymph Nodes: Within normal limits. Bones: Within normal limits for the patient's age. There are marked degenerative changes seen in the left hip with loss of the joint space and osteophytes. Subchondral cysts are seen across the joint space. Soft Tissues: There is a fat containing left inguinal hernia. PELVIS: Bladder: Symmetric distention, no gross wall thickening. Reproductive Organs: There is an enlarged prostate gland. Lymph Nodes: Within normal limits. Bones: Within normal limits for the patient's age. IMPRESSION: 1. Thickening of the wall of the gallbladder with pericholecystic inflammation. No gallstones are pr esent. Acute cholecystitis should be considered. Gallbladder ultrasound should be obtained for furt her evaluation. 2. Colonic diverticulosis, without evidence of acute diverticulitis. 3. Hypodense lesion seen in the kidneys. These likely reflect cysts however the evaluation is limite d secondary to patient motion artifact. Renal ultrasound may be obtained for further evaluation. Unexpected findings RADIATION DOSE DELIVERED: 1,000.99mGy.cm Total DLP DATA REPOSITORY: All CT scans at this facility are submitted to the National Radiology Data Registry (NRDR) Dose Index Registry (DIR) with the [employer] (A[employer]). RADIATION OPTIMIZATION: All CT scans at this facility use at least one of these dose optimization te chniques: automated exposure control; mA and/or kV adjustment per patient size (includes targeted exa ms where dose is matched to clinical indication); or iterative reconstruction.
[2022-10-17] MEDS: Barium Sulfate 2% W/V-Creamy Vanilla Smoothie 450 ML BTL PO (14:00)
[2022-10-17 14:22] LABS: CREATININE 2.1 mg/dL (0.70-1.30); Estimated GFR 30.47 (mL/min/1.73m2)
[2022-10-17] MEDS: Normal Saline - Diluent 50 ML VIAL IJ (14:53)
[2022-10-17] MEDS: Omnipaque 350 MG/ML 100 ML BTL IJ (14:54)
[2022-10-17] MEDS: Normal Saline Flush 10 ML SYR IVP (14:55)
== END 2022-10-17 02:52 ==
LOC: DI 02:35
PROVIDERS: PCP Family Medicine; Visit Provider Family Medicine
DX: K57.30 Diverticulosis of large intestine without perforation or abscess without bleeding (principal); N28.89 Other specified disorders of kidney and ureter; K52.9 Noninfective gastroenteritis and colitis, unspecified
CPT/HCPCS: 74177; 82565; J3490

== ENCOUNTER → 2022-10-26 15:21 | Outpatient (BNVA) | payer MEDICARE, OTHER, SELFPAY | PROVIDERS: PCP Family Medicine; Visit Provider Nurse Practitioner Gerontology | DX: R39.89 Other symptoms and signs involving the genitourinary system (principal); N40.1 Benign prostatic hyperplasia with lower urinary tract symptoms; R97.20 Elevated prostate specific antigen [PSA] | CPT/HCPCS: 99213 ==

== ENCOUNTER 2022-11-22 02:25 | Outpatient (CLI) | payer MEDICARE, OTHER, SELFPAY ==
--- NOTE | 2022-11-22 09:00 | DI.US_ITS ---
Exam(s) US RENAL EXAM: US RENAL CLINICAL HISTORY: hydodense lesion on CT. Eval further, KIDNEY LESION, N28.9. TECHNIQUE: Kirk scale, color and spectral Doppler were used. COMPARISON: CT CT ABDOMEN PELVIS W from 10/17/2022 FINDINGS: Renal size in cm: Right: 10.6 left: 9.4 Echogenicity: Increased echogenicity consistent with medical renal disease. Hydronephrosis: No Cyst or mass: 2.8 centimeter simple cyst mid right kidney. 1.7 centimeters simple cyst mid to lower pole of the left kidney. Few other smaller cysts are identified. No suspicious masses. Nephrolithiasis: No Bladder:Mild wall thickening. Both ureteral jets visualized. Prevoid vol:105 Postvoid vol:30 IMPRESSION: Bilateral simple renal cysts. No further follow-up recommended. Increased renal echogenicity 2nd cyst with medical renal disease. Mild bladder wall thickening. Mildly elevated postvoid residual. DATA REPOSITORY:
== END 2022-11-22 02:45 ==
LOC: DI 02:32
PROVIDERS: PCP Family Medicine; Visit Provider Nurse Practitioner Gerontology
DX: N28.1 Cyst of kidney, acquired (principal); N18.9 Chronic kidney disease, unspecified
CPT/HCPCS: 76770

== ENCOUNTER 2023-03-08 10:45 | Outpatient (REF) | payer MEDICARE, OTHER, SELFPAY ==
--- NOTE | 2023-03-08 15:55 | SKI_PTH ---
PATIENT: Nicolas Valadez LOC: [facility] U#:[id number] AGE/SX: 82/M ROOM: RE03/08/[address]: Dez Jones MD : [id number] BED: DIS: 03/08/2023 SPEC #: [id number] RECD: 03/09/23 12:13 STATUS: PARRISH REQ #: [id number] MASHA: 03/08/23 15:[address]: Dez Jones DEPT: Surgical Specimen RECD BY: Raysa Arshad Tissues: 1 - SKIN BIOPSY(SHAVE/PUNCH) Procedures: SKIN LEVEL 4 Comments: [id number]
== END 2023-03-08 10:46 | disposition home or self-care (01) ==
LOC: LBN 10:45
PROVIDERS: PCP Family Medicine; Visit Provider Family Medicine
DX: B07.9 Viral wart, unspecified (principal); L98.8 Other specified disorders of the skin and subcutaneous tissue
CPT/HCPCS: 88305

== ENCOUNTER → 2023-04-26 14:17 | Outpatient (BNVA) | payer MEDICARE, OTHER, SELFPAY | PROVIDERS: PCP Family Medicine; Referring Provider Family Medicine; Visit Provider Podiatrist | DX: N18.30 Chronic kidney disease, stage 3 unspecified (principal); B35.1 Tinea unguium; B35.3 Tinea pedis; I87.2 Venous insufficiency (chronic) (peripheral); R23.1 Pallor; L60.3 Nail dystrophy; L65.9 Nonscarring hair loss, unspecified; R60.0 Localized edema | CPT/HCPCS: 11721 ==

== ENCOUNTER → 2023-05-08 14:34 | Outpatient (BNVA) | payer MEDICARE, OTHER, SELFPAY | PROVIDERS: PCP Family Medicine; Referring Provider Family Medicine; Visit Provider Nurse Practitioner Gerontology | DX: N40.1 Benign prostatic hyperplasia with lower urinary tract symptoms (principal); R35.0 Frequency of micturition; R97.20 Elevated prostate specific antigen [PSA] | CPT/HCPCS: 51798; 99214 ==

== ENCOUNTER 2023-06-14 01:46 | Outpatient (CLI) | payer MEDICARE, SELFPAY ==
[2023-06-14 15:00] LABS: HCT 37.1 % (40.0-50.0); HGB 12.6 g/dL (13.5-17.5); MCH 37.2 pg (27.0-33.0); MPV 10.8 fL (8.0-11.0); Platelet Count 202 10^3/uL (130-400); RBC 3.39 10^6/uL (4.36-5.78); RDW 12.2 % (11.8-14.1); RDW-SD 49.4 fL; WBC 7.98 10^3/uL (4.4-10.8)
[2023-06-14 15:09] LABS: MCV 109 fL (80-95)
[2023-06-14 15:33] LABS: ALT 278 U/L (16-63); AST 228 U/L (15-37); Albumin 3.2 g/dL (3.4-5.0); Alkaline Phosphatase 507 U/L (46-116); Anion Gap 10.2 mmol/L (3-11); BUN 39 mg/dL (7-18); Bilirubin, Total 1.4 mg/dL (0.2-1.0); CO2 25.8 mmol/L (21.0-32.0); Calcium 9.2 mg/dL (8.5-10.1); Chloride 106 mmol/L (98-107); Glucose 129 mg/dL (74-106); NT-proBNP 3557 pg/mL (<300); Potassium 4.2 mmol/L (3.5-5.1); Sodium 142 mmol/L (136-145); Total Protein 6.8 g/dL (6.4-8.2)
== END 2023-06-14 01:47 | disposition home or self-care (01) ==
LOC: LBO 01:46
PROVIDERS: PCP Family Medicine; Visit Provider Family Medicine
DX: R53.83 Other fatigue (principal); I50.9 Heart failure, unspecified; R10.9 Unspecified abdominal pain
CPT/HCPCS: 36415; 80053; 85027; 83880

== ENCOUNTER → 2023-07-05 03:03 | Outpatient (CLI) | payer MEDICARE, SELFPAY ==
--- NOTE | 2023-07-05 08:30 | DI.CT_ITS ---
Exam(s) CT ABDOMEN PELVIS W EXAM: CT ABDOMEN PELVIS W CLINICAL HISTORY: elevated lft'S,R74.8 TECHNIQUE: Imaging Protocol: Axial computed tomography images with coronal and sagittal reformatted images were created and reviewed. CONTRAST MATERIAL: Intravenous: Omnipaque 350 Contrast volume:50 mL Oral: Yes COMPARISON: CT CT ABDOMEN PELVIS W from 10/17/2022 FINDINGS: The examination is limited due to patient motion artifact. ABDOMEN: Lung Bases: There are calcified granuloma in the lungs. Coronary artery calcification are present. Mild emphysematous changes are seen in the lung bases. Liver: There is decreased attenuation of the liver suggesting fatty infiltration. No measurable mass . Portal, Superior Mesenteric, and Splenic Veins: Unremarkable. Gallbladder and Biliary Tract: There is marked gallbladder wall thickening. Inflammation is seen in the pericholecystic soft tissues. There is enhancement of the wall of the gallbladder. No biliary d uctal dilatation or stone is present. Pancreas: Normal density, no abnormal calcifications or inflammatory process. Spleen: Normal. Adrenals: No masses seen. Kidneys: Normal size, contour and axis. No radiodense stones or obstructive uropathy. Bilateral renal cysts which appears stable in size. No follow-up is recommended. Abdominal Aorta: Abdominal portion non-dilated. Atherosclerotic calcification. Bowel: There is diverticulosis of the colon without evidence of acute diverticulitis. No evidence of bowel obstruction or bowel wall thickening. No pneumatosis is present. Appendix is unremarkable. Peritoneal Cavity: No ascites, collection or mesenteric inflammatory response. No free air. Lymph Nodes: Within normal limits. Bones: Within normal limits for the patient's age. Advanced degenerative changes are again seen in t he left hip. Soft Tissues: There is a fat containing left inguinal hernia. PELVIS: Bladder: Symmetric distention, no gross wall thickening. Reproductive Organs: The prostate gland is enlarged. Lymph Nodes: Within normal limits. Bones: Within normal limits for the patient's age. IMPRESSION: 1. There is again seen diffuse thickening of the wall of the gallbladder with inflammation in the per icholecystic tissues. No gallstones are seen. This may represent acalculous cholecystitis. Neoplas m should also be considered. MRCP/ERCP should be considered for further evaluation. 2. There is fatty infiltration of the liver. 3. Colonic diverticulosis without evidence of acute diverticulitis. 4. Prostatic gland enlargement. 5. Advanced degenerative changes again seen in the left hip. RADIATION DOSE DELIVERED: Total DLP DATA REPOSITORY: All CT scans at this facility are submitted to the National Radiology Data Registry (NRDR) Dose Index Registry (DIR) with the [employer] (ACR). RADIATION OPTIMIZATION: All CT scans at this facility use at least one of these dose optimization te chniques: automated exposure control; mA and/or kV adjustment per patient size (includes targeted exa ms where dose is matched to clinical indication); or iterative reconstruction.
[2023-07-05] MEDS: Barium Sulfate 2% W/V-Berry Smoothie 450 ML BTL PO (11:07)
[2023-07-05] MEDS: Barium Sulfate 2% W/V-Creamy Vanilla Smoothie 450 ML BTL PO (11:08)
[2023-07-05 12:22] LABS: CREATININE 2.1 mg/dL (0.70-1.30); Estimated GFR 30.28 (mL/min/1.73m2)
[2023-07-05] MEDS: Omnipaque 350 MG/ML 50 ML BTL IJ (13:12)
[2023-07-05] MEDS: Normal Saline - Diluent 50 ML VIAL IJ (13:13)
== END ==
PROVIDERS: PCP Family Medicine; Visit Provider Family Medicine
DX: R74.8 Abnormal levels of other serum enzymes (principal); K57.30 Diverticulosis of large intestine without perforation or abscess without bleeding; K76.0 Fatty (change of) liver, not elsewhere classified
CPT/HCPCS: 74177; 82565; Q9967

== ENCOUNTER → 2023-07-06 15:11 | Outpatient (BNVA) | payer MEDICARE, SELFPAY | PROVIDERS: PCP Family Medicine; Referring Provider Family Medicine; Visit Provider Podiatrist | DX: I50.9 Heart failure, unspecified; L60.3 Nail dystrophy; R60.0 Localized edema; I87.2 Venous insufficiency (chronic) (peripheral); N18.30 Chronic kidney disease, stage 3 unspecified; B35.1 Tinea unguium; R09.89 Other specified symptoms and signs involving the circulatory and respiratory systems; L65.9 Nonscarring hair loss, unspecified; R23.4 Changes in skin texture; L60.8 Other nail disorders | CPT/HCPCS: 11721 ==

== ENCOUNTER → 2023-09-12 03:38 | Outpatient (CLI) | payer MEDICARE, SELFPAY ==
--- NOTE | 2023-09-12 12:30 | DI.US_ITS ---
APPROVED REPORT EXAM: Comprehensive 2D, Doppler, and color-flow Echocardiogram Patient Location: Out-Patient Bearing Machine Operator: Maile Sarmiento RDCS (AE) Indications: Atrial Fibrillation, Mixed valvular disease, HTN Other Information Study Quality: Adequate Conclusion Normal left ventricular wall thickness and chamber size. Ejection fraction is 40 to 45% with global hypokinesis Normal right ventricular size , mild hypokinesis Both atria are severely dilated The aortic valve is trileaflet and mildly sclerotic with mild to moderate regurgitation Mildly thickened mitral leaflets. Mild eccentric mitral regurgitation Mild tricuspid regurgitation. Estimated right ventricular systolic pressure is 32 mmHg Wall motion Left Ventricle The left ventricle is normal size. Left ventricular systolic function is moderately decreased. There is normal left ventricular wall thickness. There is global hypokinesis of the left ventricle. There i s no ventricular septal defect visualized. LVEF is 43%. Right Ventricle The right ventricle is normal size. Right ventricle is mildly hypokinetic. Atria Left atrium is severely dilated. Right atrium is severely dilated. The interatrial septum is intact w ith no evidence for an atrial septal defect. Aortic Valve The Aortic valve is mildly sclerotic. Aortic valve is trileaflet. There is no aortic valvular stenosi s. Mild to moderate aortic regurgitation. Mitral Valve Mitral valve leaflets are mildly thickened. No evidence of mitral valve stenosis. Mild mitral regurgi tation. Mitral regurgitation jet is eccentrically directed. Tricuspid Valve The tricuspid valve is normal in structure. There is no tricuspid valve stenosis. Mild tricuspid re gurgitation. The RVSP is 32.1mmHg. Pulmonic Valve The pulmonary valve is normal in structure. There is no pulmonic valvular stenosis. Trace to mild pul jw regurgitation. Great Vessels The aortic root is normal in size. The ascending aorta is normal in size. Aortic arch is not well vis ualized. IVC is normal in size and collapses >50% with inspiration. Pericardium There is no pericardial effusion. 2D Dimensions IVSD d PLAX 1.10 cm M: 0.6-1.2 Ao Root d 3.35 cm M: 3.1 - 3.7 LVPW d PLAX 1.13 cm M: 0.6 - 1.2 Ao Asc Diam d 3.24 cm M: 2.6 - 3.4 LVID d PLAX 5.64 cm M: 4.2 - 5.8 LVDs 4.53 cm M: 2.5 - 4.0 LV EF Teichholz 40.0 % FS 19.75 % LV EDV (Teich) 156.5 mL LV ESV (Teich) 93.9 mL M-Mode TAPSE 1.82 cm (M/F) >1.7 Auto EF LV EDV A4C 159.4 mL LV EDV A2C 140.9 mL LV EDV BP 153.0 mL LV ESV A4C 91.7 mL LV ESV A2C 80.3 mL LV ESV BP 88.0 mL LVEF(%) A4C 42.5 % LVEF(%) A2C 43.0 % LVEF(%) BP 42.5 % LV SV A4C 67.8 ml LV SV A2C 60.6 ml LV SV BP 65.0 ml LV CO A4C 4.8 L/min LV CO A2C 4.3 L/min LV CO BP 4.5 L/min HR A4C 70.18 BPM HR A2C 70.73 BPM LV EDV Index (BP) LV Strain Long Pk Overal Avg (s) 13.04 LA Volume LA Length A4C 7.7 cm LA Length A2C 7.9 cm LA Area A4C s 33.18 cm2 LA Area A2C s 39.69 cm2 LA Vol A4C A-L 121.02 mL LA Vol A2C A-L 169.34 mL LA Vol Biplane A-L 144.8 mL LA Vol/BSA A4C A-L LA Vol/BSA A2C A-L LA Vol/BSA BP A-L 75.4 mL/m2 LA Vol A4C MOD 111.6 mL LA Vol A2C MOD 155.7 mL LA Vol BP MOD 133.2 mL RA Volume RA Area A4C 26.3 cm2 RA ESV A4C (A-L) 91.1mL RA Vol/BSA A4C A-L RA Length A4C 6.5 cm RA ESV A4C (MOD) 87.7mL LV Diastology MV E' medial 0.082 (>0.07 m/s) MV E Vmax 1.36 (0.4-1.3 m/s) MV E/E' MED 16.51 (<14) MV E' lateral 0.180 (>0.1 m/s) MV E/E' LAT 7.52 (<14) MV E' Average 0.131 m/s MV E/E'(average) 10.33 Aortic Valve AoV Vmax 1.52 m/s LVOT Vmax 0.94 m/s AoV Peak Grad 38.4 mmHg LVOT Peak Grad 3.6 mmHg AoV Area (Vmax) 2.01 cm2 LVOT VTI 0.236 m AoV VTI 0.357 m LVOT Mean Grad 2.0 mmHg AoV Mean Lukasz. 1.01 m/s LVOT SV 76.46 mL AoV Mean Grad 4.7 mmHg LVOT Diam s 2.00 cm AoV Area (VTI) 2.14 cm2 AV Regurg Peak Gr. 67.35 mmHg Velocity Ratio 0.62 AR Decel Jack 2.6m/sec2 AR DT 1588 msec AR PHT 461 msec AR Vmax 4.10 m/s Mitral Valve MV DT 194 (160-240 msec) MR Vmax 5.30 m/s MV Vmax TIPS 1.48 m/s MR VTI 1.751 m MV Mean Grad 2.2 (<2mmHg) MR Peak Grad 112.2 mmHg MV VTI 0.461 m MR Mean Grad 74.1 mmHg Pulmonary Valve PV Vmax 1.00 (0.5-1.5 m/s) RVOT Vmax 0.78 m/s PV Peak Grad 4.0 mmHg RVOT Peak Gr. 2.4 mmHg PV Mean Lukasz 0.68 m/s RVOT VTI 0.182 m PV Mean Grad 2.2 mmHg RVOT Mean Gr. 1.4 mmHg Tricuspid Valve RA Pressure 3.00 mmHg TR Vmax 2.70 m/s TV S' 0.11 m/s TR Peak Grad 29.0 mmHg RVSP (TR) 32.1 mmHg
== END ==
PROVIDERS: PCP Family Medicine; Visit Provider Internal Medicine Cardiovascular Disease
DX: I10 Essential (primary) hypertension (principal); I48.91 Unspecified atrial fibrillation; I51.7 Cardiomegaly; I35.1 Nonrheumatic aortic (valve) insufficiency; I34.0 Nonrheumatic mitral (valve) insufficiency
CPT/HCPCS: 93306

== ENCOUNTER → 2023-09-29 13:31 | Outpatient (BNVA) | payer MEDICARE, SELFPAY | PROVIDERS: PCP Family Medicine; Visit Provider Internal Medicine Cardiovascular Disease | DX: I48.21 Permanent atrial fibrillation (principal); M16.12 Unilateral primary osteoarthritis, left hip | CPT/HCPCS: 99213 ==

== ENCOUNTER → 2023-11-06 14:47 | Outpatient (BNVA) | payer MEDICARE, SELFPAY | PROVIDERS: PCP Family Medicine; Visit Provider Nurse Practitioner Gerontology | DX: N40.1 Benign prostatic hyperplasia with lower urinary tract symptoms (principal); R35.0 Frequency of micturition; R97.20 Elevated prostate specific antigen [PSA] | CPT/HCPCS: 51798; 99213 ==

== ENCOUNTER → 2023-11-08 14:57 | Outpatient (BNVA) | payer MEDICARE, SELFPAY | PROVIDERS: PCP Family Medicine; Referring Provider Family Medicine; Visit Provider Podiatrist | DX: N18.9 Chronic kidney disease, unspecified (principal); I50.9 Heart failure, unspecified; L60.3 Nail dystrophy; R60.9 Edema, unspecified; I87.2 Venous insufficiency (chronic) (peripheral); N18.30 Chronic kidney disease, stage 3 unspecified; B35.1 Tinea unguium | CPT/HCPCS: 11720 ==

== ENCOUNTER 2023-11-20 15:20 | Outpatient (REF) | payer MEDICARE, SELFPAY ==
--- NOTE | 2023-11-20 12:00 | SKI_PTH ---
PATIENT: Nicolas Valadez LOC: [facility] U#:[id number] AGE/SX: 83/M ROOM: RE11/20/[address]: Adam Ferrera MD : [id number] BED: DIS: 11/20/2023 SPEC #: [id number] RECD: 11/20/23 15:35 STATUS: PARRISH REQ #: [id number] MASHA: 11/20/23 12:[address]: Adam Ferrera DEPT: Surgical Specimen RECD BY: Raysa Arshad ENTERED: 11/20/23 15:36 SP TYPE: SKI OTHR DR: Dez Jones MD Tissues: 1 - SKIN BIOPSY(SHAVE/PUNCH) Procedures: SKIN LEVEL 4 Comments: [id number]
== END 2023-11-20 15:21 | disposition home or self-care (01) ==
LOC: LBN 15:20
PROVIDERS: PCP Family Medicine; Visit Provider Otolaryngology
DX: L98.9 Disorder of the skin and subcutaneous tissue, unspecified (principal); C44.219 Basal cell carcinoma of skin of left ear and external auricular canal
CPT/HCPCS: 88305

== ENCOUNTER 2023-12-08 00:57 | Outpatient (CLI) | payer MEDICARE, SELFPAY ==
--- NOTE | 2023-12-08 08:00 | DI.RAD_ITS ---
Exam(s) XR HIP LT COMPLETE AP PELVIS EXAM: XR HIP LT COMPLETE AP PELVIS CLINICAL HISTORY: left hip pain,m25.552. TECHNIQUE: 2D digital imaging was performed. COMPARISON: No exams were available for comparison FINDINGS: Two views. No evidence of pelvic nor hip fracture. However, there is severe advanced unilateral osteoarthritic degenerative changes in the left hip with [id number] narrowing, subchondral sclerosis and degenerat gina subarticular cysts on both sides the joint. Similar findings are not seen on the opposite-right side. Remainder of the osseous pelvis appears unremarkable. 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 DATA REPOSITORY: RADIATION DOSE DELIVERED:
== END 2023-12-08 01:17 ==
LOC: DI 00:57
PROVIDERS: PCP Family Medicine; Visit Provider Family Medicine
DX: M25.552 Pain in left hip (principal); G89.29 Other chronic pain
CPT/HCPCS: 73502

== ENCOUNTER → 2024-01-31 14:06 | Outpatient (BNVA) | payer MEDICARE, SELFPAY | PROVIDERS: PCP Family Medicine; Referring Provider Family Medicine; Visit Provider Podiatrist | DX: N18.30 Chronic kidney disease, stage 3 unspecified (principal); L60.3 Nail dystrophy; B35.1 Tinea unguium; I87.2 Venous insufficiency (chronic) (peripheral); R60.0 Localized edema; M79.675 Pain in left toe(s); M79.674 Pain in right toe(s); R20.8 Other disturbances of skin sensation | CPT/HCPCS: 11721 ==

== ENCOUNTER → 2024-02-08 14:20 | Outpatient (BNVA) | payer MEDICARE, SELFPAY | PROVIDERS: PCP Family Medicine; Referring Provider Family Medicine; Visit Provider Student in an Organized Health Care Education/Training Program | DX: M16.12 Unilateral primary osteoarthritis, left hip (principal) | CPT/HCPCS: 99214 ==

== ENCOUNTER 2024-02-15 14:50 | Outpatient (CLI) | payer MEDICARE, SELFPAY ==
[2024-02-15 14:41] LABS: HCT 36.7 % (40.0-50.0); HGB 12.3 g/dL (13.5-17.5); MCH 37.8 pg (27.0-33.0); MCHC 33.5 % (32.0-36.0); MCV 113 fL (80-95); MPV 10.4 fL (8.0-11.0); Platelet Count 164 10^3/uL (130-400); RBC 3.25 10^6/uL (4.36-5.78); RDW 11.8 % (11.8-14.1); RDW-SD 49.3 fL; WBC 8.17 10^3/uL (4.4-10.8)
[2024-02-15 15:11] LABS: BUN 42 mg/dL (7-18); CREATININE 2.2 mg/dL (0.70-1.30); Calcium 9.2 mg/dL (8.5-10.1); Chloride 108 mmol/L (98-107); Estimated GFR 28.63 (mL/min/1.73m2); Glucose 123 mg/dL (74-106); Potassium 4.9 mmol/L (3.5-5.1); Sodium 143 mmol/L (136-145)
[2024-02-15 18:10] LABS: Iron 124 ug/dL (65-175); Total Iron Binding Capacity 336 ug/dL (250-450); Transferrin Sat 37 % (20-55)
[2024-02-15 18:24] LABS: ALT 38 U/L (16-63); AST 41 U/L (15-37); Albumin 3.5 g/dL (3.4-5.0); Alkaline Phosphatase 272 U/L (46-116); Bilirubin, Total 0.77 mg/dL (0.2-1.0); Ferritin 68 ng/mL (26-388); Total Protein 6.8 g/dL (6.4-8.2)
[2024-02-15 18:43] LABS: Bilirubin, Direct 0.3 mg/dL (0.0-0.2)
== END 2024-02-15 14:51 | disposition home or self-care (01) ==
LOC: LBO 14:55
PROVIDERS: PCP Family Medicine; Visit Provider Student in an Organized Health Care Education/Training Program
DX: M16.12 Unilateral primary osteoarthritis, left hip (principal); Z01.818 Encounter for other preprocedural examination; R74.8 Abnormal levels of other serum enzymes
CPT/HCPCS: 36415; 80048; 80061; 80076; 85027; 82728; 83540; 83550

== ENCOUNTER → 2024-02-28 14:48 | Outpatient (BNVA) | payer MEDICARE, SELFPAY | PROVIDERS: PCP Family Medicine; Referring Provider Family Medicine; Visit Provider Podiatrist | DX: N18.30 Chronic kidney disease, stage 3 unspecified (principal); B35.3 Tinea pedis; L60.3 Nail dystrophy; I87.2 Venous insufficiency (chronic) (peripheral); B35.1 Tinea unguium; L97.511 Non-pressure chronic ulcer of other part of right foot limited to breakdown of skin | CPT/HCPCS: 99214 ==

== ENCOUNTER → 2024-03-18 14:44 | Outpatient (BNVA) | payer MEDICARE, SELFPAY | PROVIDERS: PCP Family Medicine; Referring Provider Family Medicine; Visit Provider Podiatrist | DX: L97.511 Non-pressure chronic ulcer of other part of right foot limited to breakdown of skin (principal); L60.0 Ingrowing nail; B07.0 Plantar wart; B35.3 Tinea pedis; N18.30 Chronic kidney disease, stage 3 unspecified; L60.3 Nail dystrophy; I87.2 Venous insufficiency (chronic) (peripheral); B35.1 Tinea unguium | CPT/HCPCS: 11730; 17110 ==

== ENCOUNTER → 2024-04-29 14:01 | Outpatient (BNVA) | payer MEDICARE, SELFPAY | PROVIDERS: PCP Family Medicine; Referring Provider Family Medicine; Visit Provider Podiatrist | DX: L97.511 Non-pressure chronic ulcer of other part of right foot limited to breakdown of skin (principal); L60.0 Ingrowing nail; B07.0 Plantar wart; B35.3 Tinea pedis; L60.3 Nail dystrophy; I87.2 Venous insufficiency (chronic) (peripheral); N18.30 Chronic kidney disease, stage 3 unspecified; B35.1 Tinea unguium; R09.89 Other specified symptoms and signs involving the circulatory and respiratory systems; L65.9 Nonscarring hair loss, unspecified; R20.8 Other disturbances of skin sensation; I83.93 Asymptomatic varicose veins of bilateral lower extremities; R60.0 Localized edema | CPT/HCPCS: 11719 ==

== ENCOUNTER → 2024-05-15 13:13 | Outpatient (BNVA) | payer MEDICARE, SELFPAY | PROVIDERS: PCP Family Medicine; Visit Provider Nurse Practitioner Gerontology | DX: N40.1 Benign prostatic hyperplasia with lower urinary tract symptoms (principal); R35.0 Frequency of micturition; R97.20 Elevated prostate specific antigen [PSA] | CPT/HCPCS: 51798; 99213 ==

== ENCOUNTER 2024-06-04 03:21 | Outpatient (CLI) | payer MEDICARE, SELFPAY ==
[2024-06-04 15:00] LABS: HCT 38.1 % (40.0-50.0); HGB 12.8 g/dL (13.5-17.5); MCH 37.3 pg (27.0-33.0); MCHC 33.6 % (32.0-36.0); MCV 111 fL (80-95); MPV 10.3 fL (8.0-11.0); Platelet Count 174 10^3/uL (130-400); RBC 3.43 10^6/uL (4.36-5.78); RDW 11.7 % (11.8-14.1); RDW-SD 48.2 fL; WBC 8.21 10^3/uL (4.4-10.8)
[2024-06-04 15:31] LABS: Anion Gap 9.5 mmol/L (3-11); BUN 39 mg/dL (7-18); CO2 24.5 mmol/L (21.0-32.0); CREATININE 2.2 mg/dL (0.70-1.30); Calcium 9.4 mg/dL (8.5-10.1); Chloride 108 mmol/L (98-107); Estimated GFR 28.46 (mL/min/1.73m2); Glucose 93 mg/dL (74-106); Potassium 4.4 mmol/L (3.5-5.1); Sodium 142 mmol/L (136-145)
== END 2024-06-04 03:22 | disposition home or self-care (01) ==
LOC: LBO 03:21
PROVIDERS: PCP Family Medicine; Visit Provider Student in an Organized Health Care Education/Training Program
DX: M16.12 Unilateral primary osteoarthritis, left hip (principal)
CPT/HCPCS: 36415; 80048; 85027

== ENCOUNTER 2024-06-28 06:01 | Day surgery (SDC) | payer MEDICARE, SELFPAY ==
[2024-06-28 06:42] VITALS: BP 136/46; PULSE 76; RESP 20; TEMP 36.5; O2SAT 96
[2024-06-28] MEDS: Acetaminophen 500 MG TAB 1000 MG PO (06:50)
--- NOTE | 2024-06-28 07:05 | W.ANESPRE ---
General Info Date of Service Date Performed: 06/28/24 Height: 5 ft 6 in Weight: 82 kg Body Mass Index (BMI): 29.2 Surgical Procedure: Operation Date: 06/28/24 07:50 Proposed Procedure Side Surgeon p Hip Total Hip Anterior, Actis Left David Lincoln MD Meds Allergies and Home Medications Allergies Allergy/AdvReac Type Severity Reaction Status Date / Time metoprolol AdvReac fatigue Verified 06/28/24 06:29 Home Medication ?Medication ?Instructions ?Recorded omega-3 fatty acids-fish oil 300 1 cap PO QAM 08/15/12 mg-1,000 mg capsule vitamin B complex (B-Complex 1 tab PO DAILY 08/15/12 tablet) cholecalciferol (vitamin D3) 50 2,000 unit PO DAILY 12/05/14 mcg (2,000 unit) capsule (Vitamin D3) acetaminophen 500 mg tablet 500 mg PO PRN 03/30/15 (Tylenol Extra Strength) apixaban 2.5 mg tablet (Eliquis) 2.5 mg PO BID #180 tabs 10/12/23 terazosin 10 mg capsule 10 mg PO DAILY #90 tab-caps 11/06/23 budesonide-formoterol HFA 80 2 puff inhalation BID #10.2 grams 11/30/23 mcg-4.5 mcg/actuation aerosol inhaler (Symbicort) diltiazem HCl 180 mg 180 mg PO BID #180 tabs 02/23/24 capsule,extended release 24 hr ketoconazole 2 % topical cream 1 applic topical DAILY #120 grams 02/28/24 famotidine 20 mg tablet 20 mg PO BID #180 tabs 05/02/24 finasteride 5 mg tablet (Proscar) 5 mg PO DAILY prostate #90 tabs 05/02/24 furosemide 40 mg tablet (Lasix) 40 mg PO DAILY #90 tab-caps 05/02/24 losartan 25 mg tablet 25 mg PO DAILY #90 tabs 06/20/24 Current Visit Medications: Current Medications Generic Name Dose Route Start Last Admin Trade Name Freq PRN Reason Stop Dose Admin Acetaminophen 1,000 mg 06/28/24 06:00 06/28/24 06:50 Acetaminophen 500 Mg Tab PO 06/28/24 23:59 1,000 mg PREOP TADEO Administration Celecoxib 400 mg 06/28/24 06:00 Celecoxib 200 Mg Cap PO 06/28/24 23:59 PREOP TADEO Gabapentin 300 mg 06/28/24 06:00 Gabapentin 300 Mg Cap PO 06/28/24 23:59 PREOP TADEO Ringer's Solution 1,000 mls @ 80 mls/hr 06/28/24 06:00 IV 06/28/24 23:59 INFUSION TADEO IV Miscellaneous Supplies 1 each 06/28/24 06:00 Iv Access IV 06/28/24 23:59 DIRECTED TADEO Sodium Chloride 0 ml 06/28/24 06:00 Normal Saline Flush 10 Ml Syr IV 06/28/24 23:59 PRN PRN Sodium Chloride 0 ml 06/28/24 06:00 Normal Saline 10 Ml Vial IJ 06/28/24 23:59 DIRECTED PRN Sterile Water 0 ml 06/28/24 06:00 Water,Injection,Sterile 10 Ml Vial IJ 06/28/24 23:59 DIRECTED PRN PFSH Active Problems Active Problems: Problem Status Onset Code Callus Acute L84 Plantar verruca Acute B07.0 Ingrown toenail Acute L60.0 Ulcer of right foot limited to breakdown of skin Acute L97.511 Skin lesion of hand Acute L98.9 Irregular bowel habits Acute R19.8 Thickening of wall of gallbladder Acute K82.8 Lesion of pinna Acute H61.109 Chronic left hip pain Acute M25.552, G89.29 Abnormal liver enzymes Acute R74.8 Tinea pedis Acute B35.3 Skin lesion Acute L98.9 Onychomycosis Acute B35.1 Kidney disease, chronic, stage III (moderate, EGFR 30-59 ml/min) Acute N18.30 Sciatica, right side Acute M54.31 Chronic diarrhea Acute K52.9 Actinic keratosis Acute L57.0 Post-viral cough syndrome Acute R05.8 Venous insufficiency Acute I87.2 Edema Acute R60.9 Nail dystrophy Acute L60.3 Change in stool habits Acute R19.4 Back pain Acute M54.9 Domestic concerns Acute Z65.8 Basal cell carcinoma of left hand Acute C44.619 Pre-operative cardiovascular examination Acute Z01.810 Congestive heart failure Chronic I50.9 Rectal bleeding Acute K62.5 Alcohol use disorder Acute Dyspnea on exertion Acute R06.00 Macrocytosis Acute D75.89 CKD (chronic kidney disease) Acute N18.9 Sleep apnea Acute G47.30 Arthritis of left hip Chronic M16.12 Umbilical hernia Acute K42.9 Primary osteoarthritis of right knee Acute 05/18/15 M17.11 Obesity Chronic E66.9 Hypertension Acute I10 Hyperlipidemia Acute E78.5 Gastroesophageal reflux disease Acute K21.9 Elevated PSA Acute R97.20 MUNGUIA (dyspnea on exertion) Acute 11/13/15 R06.09 Chronic obstructive bronchitis Acute 03/02/16 J44.9 Benign prostatic hyperplasia Acute N40.0 Atrial fibrillation Acute 11/28/14 I48.91 Medical History Medical History Basal cell carcinoma of left ear Vertigo (03/13/12) Trochanteric bursitis of left hip (12/05/14) Tobacco use disorder cigars Left shoulder pain (08/18/14) Hematuria (07/06/17) Surgical History Surgical History S/P ventral herniorrhaphy (~05/29/19) Rotator Cuff Repair (~2001) LEFT Colonoscopy - MAC 2004-NEG 2009-NEG Tobacco Smoking/Tobacco Use Status: Current-Occasional Tobacco Type: cigars Per week: 5 Alcohol Alcohol Intake: current Alcohol intake frequency: 0-2 drinks per day Alcohol type: hard liquor Substance Use Substance use: Never Substance use type: does not use Details: alcohol: t-1: 2 oz Vital Signs and Lab Results Vital Signs Most Recent Vital Signs in EMR: Most Recent Vital Signs Temp Pulse Resp BP Pulse Ox 36.5 C 76 20 136/46 L 96 06/28/24 06:42 06/28/24 06:42 06/28/24 06:42 06/28/24 06:42 06/28/24 06:42 Lab Results Blood Type / Crossmatch: No Data to Display Complete Blood Count: White Blood Count 8.21 10^3/uL (4.4-10.8) 06/04/24 14:45 Red Blood Count 3.43 10^6/uL (4.36-5.78) L 06/04/24 14:45 Hemoglobin 12.8 g/dL (13.5-17.5) L 06/04/24 14:45 Hematocrit 38.1 % (40.0-50.0) L 06/04/24 14:45 Platelet Count 174 10^3/uL (130-400) 06/04/24 14:45 Complete Metabolic Panel: Sodium 142 mmol/L (136-145) 06/04/24 14:45 Potassium 4.4 mmol/L (3.5-5.1) 06/04/24 14:45 Chloride 108 mmol/L (98-107) H 06/04/24 14:45 Carbon Dioxide 24.5 mmol/L (21.0-32.0) 06/04/24 14:45 BUN 39 mg/dL (7-18) H 06/04/24 14:45 Creatinine 2.2 mg/dL (0.70-1.30) H 06/04/24 14:45 Est GFR (CKD-EPI 2020) 28.46 (mL/min/1.73m2) 06/04/24 14:45 Calcium 9.4 mg/dL (8.5-10.1) 06/04/24 14:45 Glucose 93 mg/dL (74-106) 06/04/24 14:45 Liver Function Panel: No Data to Display Coagulation Panel: No Data to Display Cardiac Panel: No Data to Display Arterial Blood Gas: No Data to Display Venous Blood Gas: No Data to Display Pancreas Panel: No Data to Display Thyroid Panel: No Data to Display Infectious Disease: No Data to Display Blood Cultures: No Data to Display Toxicology Panel: No Data to Display Imaging and Studies Imaging and Studies Study information below may be from another EMR and interpreted by another provider. Please see original notes in EMR for more complete details. EKG Summary: Conclusion Atrial fibrillation...V-rate 57- 89, irreg A-activity Ventricular premature complex...V complex w/ short R-R interval Echocardiogram Summary: Conclusion Normal left ventricular wall thickness and chamber size. Ejection fraction is 40 to 45% with global hypokinesis Normal right ventricular size , mild hypokinesis Both atria are severely dilated The aortic valve is trileaflet and mildly sclerotic with mild to moderate regurgitation Mildly thickened mitral leaflets. Mild eccentric mitral regurgitation Mild tricuspid regurgitation. Estimated right ventricular systolic pressure is 32 mmHg Anesthesia Assessment and Plan Anesthesia History Personal History: No History of Anesthesia Complications Family History: No Family History of Anesthesia Complications Exercise Tolerance Exercise Tolerance: Metabolic Equivalents<4 Pertinent Negatives Pertinent Negatives: No Symptoms of GERD Cardiac & Pulmonary Exam Cardiac Exam: Other Pulmonary Exam: Wheezing Present and Rhonchi Present Implantable Cardiac Device Does patient have a Pacemaker or an ICD?: No Airway Exam Known Difficult Airway: No Mallampati Class: 2 Mouth Opening: Normal (> 3cm) Thyromental Distance: Greater than 3 cm Neck Range of Motion: Full ROM Neck Circumference: Normal Teeth Condition: Normal Dentition ASA Classification ASA Score: ASA 3 Emergency Case?: No NPO Status NPO Status: NPO Clears >2 hours, Solids >8 hours Anesthesia Plan Resuscitation Status: Full Code Anesthesia Technique: Spinal Anesthesia Airway Planned: Natural Airway Monitors Used: Standard Monitors Preoperative Comments:: Pt. presented today. usually uses walker and has limited mobility/activity at home but does drive and goes 800 steps a day. Brought in to D[facility] by wheelchair, RN noted patient with increased work of breathing, SpO2 room air of 90-92% with diffuse bilateral wheezes and rhonchi. No one in household recently sick. Pt. does not feel ill but does state he has felt more short of breath recently. SpO2 93-96% (baseline appears to be 96-98% per records) after resting but lungs still quite wheezy. He recently saw PCP and states he was a little wheezy then. Had conversation with patient, daughter and son who lives with him. Explained it would be reasonable to complete surgery today after a duoneb but there is a slight/small risk that if this is not his baseline and lungs were worsening, that surgery on an 84 yo could increase his risk. Son does note pt. gets winded easily at home. Dr. Lincoln also part of conversation. Given options, patient wishes to refer back to PCP or Pulmonology for further workup. Does not feel he needs to go to ED today but was advised if he notes worsening SOB, fever/chills that he should be seen and seek further care. Family appreciative and understands plan.
[2024-06-28 07:06] VITALS: BMI 29.2
[2024-06-28 08:02] VITALS: PULSE 66; RESP 18; RESP 9; O2SAT 94
[2024-06-28] MEDS: Albuterol/Ipratropium 3 ML UPD VIAL UPD (08:02)
[2024-06-28 08:07] VITALS: PULSE 66; RESP 9
--- NOTE | 2024-06-28 13:45 | DSU.FORM ---
0730: Pt's surgery cancelled today. Pt. decided he would like to investigate his respiratory status further after talking to anesthesia and discussing the increased risk of surgery given the inspiratory wheezes and rhonchi throughout in bilateral lungs today. Pt. aware that he received Tylenol 1000 mg PO at 0651 today in preparation for surgery. Pt. aware that he received a DuoNeb treatment from RT at 0805 per SERVICE WRITER ADVISOR order. Pt. aware that RT reports his lungs were diminished throughout after treatment. Pt. provided coffee and muffin. Pt. assisted with changing back into his street clothes. 0830: Pt. taken via wheelchair by this nurse with personal belongings( phone, cane, clothing) and paper with times Tylenol and DuoNeb given to car driven by Laurie. Pt. states his lungs feel better and denies concerns.
== END 2024-06-28 06:02 | disposition home or self-care (01) ==
PROVIDERS: PCP Family Medicine; Visit Provider Student in an Organized Health Care Education/Training Program
DX: M16.12 Unilateral primary osteoarthritis, left hip (principal); N18.30 Chronic kidney disease, stage 3 unspecified; I12.9 Hypertensive chronic kidney disease with stage 1 through stage 4 chronic kidney disease, or unspecified chronic kidney disease; E78.5 Hyperlipidemia, unspecified; I48.91 Unspecified atrial fibrillation; Z53.09 Procedure and treatment not carried out because of other contraindication; R06.2 Wheezing
CPT/HCPCS: 94640; 94760; J2401; J2704; J7620

== ENCOUNTER 2024-07-11 12:09 | Outpatient (CLI) | payer MEDICARE, SELFPAY ==
[2024-07-11] MEDS: Inhaler, Assist Device 1 EACH MC (16:16)
[2024-07-11] MEDS: Levalbuterol HFA 15 GM INH 4 PUFF IH (16:17)
--- NOTE | 2024-07-15 14:37 | W.PFT ---
Date of service: 07/11/24 Time of Service: 14:57 Pulmonary Function Test Result Indications: Dyspnea Interpretation Spirometry: Mild airflow limitation. No bronchodilator response. Lung Volumes: Air trapping present Diffusion Capacity: Moderately reduced diffusion Airway Pressure: Increased airways resistance. Impression Mild airflow obstruction with air trapping and a reduced diffusion. Clinical Correlation therefore is recommended.
== END 2024-07-11 12:10 | disposition home or self-care (01) ==
PROVIDERS: PCP Family Medicine; Visit Provider Student in an Organized Health Care Education/Training Program
DX: R06.09 Other forms of dyspnea (principal)
CPT/HCPCS: 94060; 94618; 94726; 94729

== ENCOUNTER 2024-07-15 02:04 | Outpatient (CLI) | payer MEDICARE, SELFPAY ==
--- NOTE | 2024-07-15 14:28 | DI.RAD_ITS ---
Exam(s) XR CHEST 2V PA LATERAL EXAM: XR CHEST 2V PA LATERAL CLINICAL HISTORY: dyspnea on exertion,R06.00 TECHNIQUE: 2D digital imaging was performed. Two views. COMPARISON: No exams were available for comparison FINDINGS: HEART: Normal size. Aorta: Not dilated. PULMONARY VASCULATURE: Normal. MEDIASTINUM: Unremarkable. LUNGS: Clear. No visible emphysematous or fibrotic changes. PLEURAL SPACE: No pleural effusion or pneumothorax. BONE:Unremarkable for age. SOFT TISSUES: Unremarkable. IMPRESSION: No acute abnormality. DATA REPOSITORY: RADIATION DOSE DELIVERED:
== END 2024-07-15 02:24 ==
LOC: DI 02:04
PROVIDERS: PCP Family Medicine; Visit Provider Student in an Organized Health Care Education/Training Program
DX: R06.00 Dyspnea, unspecified (principal)
CPT/HCPCS: 71046

== ENCOUNTER → 2024-07-24 13:51 | Outpatient (BNVA) | payer MEDICARE, SELFPAY | PROVIDERS: PCP Family Medicine; Referring Provider Family Medicine; Visit Provider Physician Assistant Surgical | DX: J44.89 Other specified chronic obstructive pulmonary disease (principal); M25.552 Pain in left hip; G89.29 Other chronic pain; I50.9 Heart failure, unspecified; N18.9 Chronic kidney disease, unspecified; G47.33 Obstructive sleep apnea (adult) (pediatric) | CPT/HCPCS: 99215; G2212 ==

== ENCOUNTER 2024-09-04 14:05 | Observation (INO) | payer MEDICARE, SELFPAY ==
[2024-09-03 14:40] VITALS: BP 141/57; PULSE 62; RESP 16; TEMP 36.5; O2SAT 90
[2024-09-04] VITALS (22 sets, daily range): BP systolic 107–147; BP diastolic 28–116; PULSE 46–76; RESP 15–22; TEMP 36.1–37.2; O2SAT 90–98; BMI 28.8
--- NOTE | 2024-09-04 07:29 | PDOC.DSDIS_ITS ---
Date of service: 09/04/24 Discharge Plan Disposition Patient Disposition: Home Condition: Good Discharge Details Reason For Visit: L THR Attending Provider: David Lincoln Primary Care Provider: Dez Jones Home Meds and New Rx's Prescriptions: New acetaminophen 500 mg tablet 1,000 mg PO TID Qty: 90 3RF celecoxib 200 mg capsule 200 mg PO BID Qty: 60 0RF dexamethasone 4 mg tablet 4 mg PO DAILY Qty: 2 0RF docusate sodium 100 mg capsule 100 mg PO BID PRNQty: 28 0RF pantoprazole 40 mg tablet,delayed release (DR/EC) 40 mg PO DAILY Qty: 14 0RF oxycodone 5 mg tablet 5 mg PO Q4H MDD 6 tabs PRN (Reason: pain) Qty: 12 0RF Continued finasteride [Proscar] 5 mg tablet 5 mg PO DAILY Qty: 90 4RF furosemide [Lasix] 40 mg tablet 40 mg PO DAILY Qty: 90 3RF famotidine 20 mg tablet 20 mg PO BID Qty: 180 3RF fluticasone propion-salmeterol [Advair HFA] 115-21 mcg/actuation HFA aerosol inhaler 2 puff inhalation BID Qty: 12 12RF Rx Instructions: administer with spacer albuterol sulfate 90 mcg/actuation HFA aerosol inhaler 2 puff inhalation QID PRN (Reason: shortness of breath or wheezing) Qty: 8.5 6RF Rx Instructions: Take as needed 4 times a day for shortness of breath or wheezing terazosin 10 mg capsule 10 mg PO DAILY Qty: 90 3RF ketoconazole 2 % cream 1 applic topical DAILY Qty: 120 6RF Rx Instructions: Apply to toenails once daily losartan 25 mg tablet 25 mg PO DAILY Qty: 90 3RF vitamin B complex [B-Complex] 1 EACH tablet 1 tab PO DAILY omega-3 fatty acids-fish oil 1 EACH capsule 1 cap PO QAM cholecalciferol (vitamin D3) [Vitamin D3] 2,000 UNIT capsule 2,000 unit PO DAILY Medial OA Brace UD DAILY Qty: 1 0RF Patient Comments: pt. states he is not using Eliquis 2.5 mg tablet 2.5 mg PO BID Qty: 180 3RF diltiazem HCl 180 mg capsule,extended release 24hr 180 mg PO BID Qty: 180 3RF Discontinued acetaminophen [Tylenol Extra Strength] 500 MG tablet 500 mg PO PRN Discharge Instructions Additional Instructions: Total Hip Discharge Instructions Activity: The most important activity is to walk. You should try to take short walks a few times a day. You have no restrictions on movement or positioning, but do not try to force what you do. You will find some stiffness and weakness with hip flexion (lifting your knee). Do not try to strengthen this too early, continue to practice walking and stairs and this will come. - Outpatient physical therapy can be helpful to help return you to a normal gait and improve your flexibility and strength. This can start around 2 weeks. For some patients, it?s not necessary. Usually this is determined at the time of discharge or at the first post-operative visit. - You should wear the KELTON hose on both legs for 2 weeks. Dressing: Keep the surgical dressing in place for at least one week. After the first week it may be removed and replace with light gauze and tape or nothing. It may get wet after 3 days but avoid soaking the dressing. If it gets wet, just lightly pat dry. It is important to always keep some gauze between skin folds, especially when you are sitting. Spend some time with the wound exposed when you are lying flat as the incision does wrinkle onto itself. Medications: - You should take Tylenol and an anti-inflammatory Celebrex as your primary pain control medications. If the Celebrex is too expensive or not covered, please call the office for another alternative (Advil/Ibuprofen or Naproxen/Aleve). - You have been prescribed a stronger pain medication Oxycodone for breakthrough pain, take as needed as prescribed. - You have also been prescribed a stomach acid reduction agent Pantoprozole to help reduce stomach acid and reflux. - You have also been prescribed Decadron to help with post-operative nausea and pain. You will take this for two days starting tomorrow. - You will be taking your apixaban for DVT prevention unless instructed otherwise. - If you have constipation you should take Colace or Miralax (both acwr-wfw-rvemror). It takes most people 3-4 days to have a bowel movement. Follow-up: 2 weeks If you have any acute concerns or questions, please do not hesitate to contact the office at [phone]. You may contact Dr. Lincoln with any questions after hours through the hospital at [phone] or on his cell phone at [phone]. Referrals: David Lincoln MD [ [facility] STAFF PHYSICIAN] - Equipment/Supplies: Walker Activity:: Activity as Tolerated Shower/Bathe:: 72 hours Diet:: As Tolerated Discharge Orders Discharge Orders: Discharge Order (Routine); Ordered 09/04/24 Ordered By: Fadi Cherry DS: Diagnosis Discharge Diagnosis (1) Arthritis of left hip: Status: Chronic
--- NOTE | 2024-09-04 09:03 | W.PREOPHP ---
Assessment and Plan Assessment and plan (1) Arthritis of left hip: Status: Chronic Assessment and plan: Nicolas is an 84-year-old male who has severe arthritis of his left hip which is debilitating. He is now much more stable. His lungs can be in a better position. He does have other medical comorbidities but they are all stable and he is been cleared for surgery by his primary physician as well as pulmonology. Once again I reviewed hip replacement surgery with him. I discussed the risk to include bleeding, infection, pain, stiffness, leg with inequality, instability, fracture, blood clot. Despite these risk, he elects to proceed. He will be admitted today to work with physical therapy before returning to home with home health services. 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 He has been scheduled for left hip surgery but fortunes had other medical conditions which has precluded proceeding. The most recent surgical attempt was canceled due to increased work of breathing and decreased oxygen saturation with a cough. He he has since seen pulmonology. There have been some changes to his inhalers and he feels much better. He denies any significant cough. He denies any work of breathing. He denies any fevers or chills or recent illness. He has known congestive heart failure with some lower extremity edema which he feels is stable without any exacerbations of this. No active wounds or skin defects. Review of Systems All systems reviewed & are unremarkable except as noted in HPI and below PFSH All Active Problems Nail dystrophy (Acute) Asthma-COPD overlap syndrome (Acute) Callus (Acute) Plantar verruca (Acute) Ingrown toenail (Acute) Ulcer of right foot limited to breakdown of skin (Acute) Skin lesion of hand (Acute) Irregular bowel habits (Acute) Thickening of wall of gallbladder (Acute) Lesion of pinna (Acute) Chronic left hip pain (Acute) Abnormal liver enzymes (Acute) Tinea pedis (Acute) Skin lesion (Acute) Onychomycosis (Acute) Kidney disease, chronic, stage III (moderate, EGFR 30-59 ml/min) (Acute) Dx code required for routine at-risk foot care with Podiatry Sciatica, right side (Acute) Chronic diarrhea (Acute) Actinic keratosis (Acute) Post-viral cough syndrome (Acute) Venous insufficiency (Acute) Edema (Acute) Nail dystrophy (Acute) Change in stool habits (Acute) Back pain (Acute) Domestic concerns (Acute) Basal cell carcinoma of left hand (Acute) 02/2021, s/p Mohs at [facility] Pre-operative cardiovascular examination (Acute) Congestive heart failure (Chronic) Rectal bleeding (Acute) Alcohol use disorder (Acute) Dyspnea on exertion (Acute) Macrocytosis (Acute) Normal folate and B12 CKD (chronic kidney disease) (Acute) Sleep apnea (Acute) uses device Arthritis of left hip (Chronic) Injection under fluroscopy: 06/13/19 Umbilical hernia (Acute) Primary osteoarthritis of right knee (Acute 05/18/15) Injected: 05/16/19 Obesity (Chronic) Hypertension (Acute) Hyperlipidemia (Acute) Gastroesophageal reflux disease (Acute) Elevated PSA (Acute) MUNGUIA (dyspnea on exertion) (Acute 11/13/15) neg cxr, [place] [facility] [place]itis (Acute 03/02/16) Benign prostatic hyperplasia (Acute) Atrial fibrillation (Acute 11/28/14) Medical History Basal cell carcinoma of left ear Vertigo (03/13/12) Trochanteric bursitis of left hip (12/05/14) Tobacco use disorder cigars Left shoulder pain (08/18/14) Hematuria (07/06/17) Surgical History S/P ventral herniorrhaphy (~05/29/19) Rotator Cuff Repair (~2001) LEFT Colonoscopy - MAC 2004-NEG 2010-NEG Family History Mother Diabetes Father Personal history of malignant neoplasm Stroke Sister No problems noted. Grandfather No problems noted. Grandfather Personal history of malignant neoplasm Grandmother Personal history of malignant neoplasm Grandmother Personal history of malignant neoplasm Social History Smoking/Tobacco Use Status: Current-Occasional Tobacco Type: cigars Per week: 5 Smoking risk assessment performed?: Yes Alcohol Intake: current Alcohol Intake frequency: 0-2 drinks per day Alcohol type: hard liquor Drug use: Never Substance use type: does not use Caregiver/Support person: Yes (He cares for his disabled he doesn't want to put her in a home) Details: she has severe arthritis, helga feels he does everything for her Household members: none Housing: house Current gender identity: male What is your relationship status?: Panel score (0-1 are the most socially isolated patients): 0 Do you feel safe at home: Yes Do you feel safe in your relationship?: Yes Meds Allergies and Home Medications Allergies Allergy/AdvReac Type Severity Reaction Status Date / Time metoprolol AdvReac fatigue Verified 09/03/24 10:25 Home Medications ?Medication ?Instructions ?Recorded ?Confirmed ?Type omega-3 fatty acids-fish oil 300 1 cap PO QAM 08/15/12 09/03/24 History mg-1,000 mg capsule vitamin B complex (B-Complex 1 tab PO DAILY 08/15/12 09/03/24 History tablet) cholecalciferol (vitamin D3) 50 2,000 unit PO DAILY 12/05/14 09/03/24 History mcg (2,000 unit) capsule (Vitamin D3) Medial Oa Brace unit UD DAILY ##1 05/18/15 12/14/18 Clinic apixaban 2.5 mg tablet (Eliquis) 2.5 mg PO BID #180 tabs 10/12/23 09/03/24 Rx terazosin 10 mg capsule 10 mg PO DAILY #90 tab-caps 11/06/23 09/03/24 Rx diltiazem HCl 180 mg 180 mg PO BID #180 tabs 02/23/24 09/03/24 Rx capsule,extended release 24 hr ketoconazole 2 % topical cream 1 applic topical DAILY #120 grams 02/28/24 09/03/24 Rx famotidine 20 mg tablet 20 mg PO BID #180 tabs 05/02/24 09/03/24 Rx finasteride 5 mg tablet (Proscar) 5 mg PO DAILY prostate #90 tabs 05/02/24 09/03/24 Rx furosemide 40 mg tablet (Lasix) 40 mg PO DAILY #90 tab-caps 05/02/24 09/03/24 Rx losartan 25 mg tablet 25 mg PO DAILY #90 tabs 06/20/24 09/03/24 Rx albuterol sulfate 90 mcg/actuation 2 puff inhalation QID PRN 07/24/24 09/03/24 Rx aerosol inhaler shortness of breath or wheezing #8.5 grams fluticasone propionate 115 2 puff inhalation BID #12 grams 07/24/24 09/03/24 Rx mcg-salmeterol 21 mcg/actuation HFA inhaler (Advair HFA) acetaminophen 500 mg tablet 1,000 mg (2 x 500 mg) PO TID #90 09/04/24 Rx tabs celecoxib 200 mg capsule 200 mg PO BID #60 caps 09/04/24 Rx dexamethasone 4 mg tablet 4 mg PO DAILY #2 tabs 09/04/24 Rx docusate sodium 100 mg capsule 100 mg PO BID PRN #28 caps 09/04/24 Rx oxycodone 5 mg tablet 5 mg PO Q4H PRN pain #12 tabs 09/04/24 Rx pantoprazole 40 mg tablet,delayed 40 mg PO DAILY #14 tabs 09/04/24 Rx release Exam Const General: cooperative, healthy appearing, comfortable and no acute distress Resp Effort & Inspection: normal respiratory effort Auscultation: clear to auscultation bilaterally Cardio Rate: regular rate Rhythm: regular rhythm
[2024-09-04] MEDS: Acetaminophen 500 MG TAB 1000 MG PO ×3 (09:26→20:11)
[2024-09-04] MEDS: Celecoxib 200 MG CAP 400 MG PO (09:27)
--- NOTE | 2024-09-04 09:35 | W.ANESPRE ---
General Info Date of Service Date Performed: 09/04/24 Height: 5 ft 6 in Weight: 81.1 kg Body Mass Index (BMI): 28.8 Surgical Procedure: Operation Date: 09/04/24 11:35 Proposed Procedure Side Surgeon p Hip Total Hip Anterior, Actis Left David Linocln MD Pre-Op Diagnosis Post-Op Diagnosis severe left hip osteoarthritis Meds Allergies and Home Medications Allergies Allergy/AdvReac Type Severity Reaction Status Date / Time metoprolol AdvReac fatigue Verified 09/04/24 09:16 Home Medication ?Medication ?Instructions ?Recorded omega-3 fatty acids-fish oil 300 1 cap PO QAM 08/15/12 mg-1,000 mg capsule vitamin B complex (B-Complex 1 tab PO DAILY 08/15/12 tablet) cholecalciferol (vitamin D3) 50 2,000 unit PO DAILY 12/05/14 mcg (2,000 unit) capsule (Vitamin D3) apixaban 2.5 mg tablet (Eliquis) 2.5 mg PO BID #180 tabs 10/12/23 terazosin 10 mg capsule 10 mg PO DAILY #90 tab-caps 11/06/23 diltiazem HCl 180 mg 180 mg PO BID #180 tabs 02/23/24 capsule,extended release 24 hr ketoconazole 2 % topical cream 1 applic topical DAILY #120 grams 02/28/24 famotidine 20 mg tablet 20 mg PO BID #180 tabs 05/02/24 finasteride 5 mg tablet (Proscar) 5 mg PO DAILY prostate #90 tabs 05/02/24 furosemide 40 mg tablet (Lasix) 40 mg PO DAILY #90 tab-caps 05/02/24 losartan 25 mg tablet 25 mg PO DAILY #90 tabs 06/20/24 albuterol sulfate 90 mcg/actuation 2 puff inhalation QID PRN 07/24/24 aerosol inhaler shortness of breath or wheezing #8.5 grams fluticasone propionate 115 2 puff inhalation BID #12 grams 07/24/24 mcg-salmeterol 21 mcg/actuation HFA inhaler (Advair HFA) acetaminophen 500 mg tablet 1,000 mg (2 x 500 mg) PO TID #90 09/04/24 tabs celecoxib 200 mg capsule 200 mg PO BID #60 caps 09/04/24 dexamethasone 4 mg tablet 4 mg PO DAILY #2 tabs 09/04/24 docusate sodium 100 mg capsule 100 mg PO BID PRN #28 caps 09/04/24 oxycodone 5 mg tablet 5 mg PO Q4H PRN pain #12 tabs 09/04/24 pantoprazole 40 mg tablet,delayed 40 mg PO DAILY #14 tabs 09/04/24 release Current Visit Medications: Current Medications Generic Name Dose Route Start Last Admin Trade Name Freq PRN Reason Stop Dose Admin Acetaminophen 1,000 mg 09/04/24 06:00 09/04/24 09:26 Acetaminophen 500 Mg Tab PO 09/04/24 23:59 1,000 mg PREOP TADEO Administration Acetaminophen 1,000 mg 09/04/24 07:27 Acetaminophen 500 Mg Tab PO 10/04/24 07:26 TID PRN PRN Analgesia Acetaminophen 1,000 mg 09/04/24 14:00 Acetaminophen 500 Mg Tab PO 10/04/24 13:59 TID TADEO Albuterol Sulfate 2 puff 09/04/24 09:12 Albuterol Hfa 8 Gm 60 Puff Inh IH 10/04/24 09:11 QID PRN shortness of breath or wheezing Apixaban 2.5 mg 09/04/24 20:00 Apixaban 2.5 Mg Tab PO 10/04/24 19:59 BID TADEO Celecoxib 400 mg 09/04/24 06:00 09/04/24 09:27 Celecoxib 200 Mg Cap PO 09/04/24 23:59 400 mg PREOP TADEO Administration Celecoxib 200 mg 09/04/24 20:00 Celecoxib 200 Mg Cap PO 10/04/24 19:59 BID [facility] Dexamethasone 4 mg 09/05/24 08:30 Dexamethasone 4 Mg Tab PO 09/06/24 08:31 DAILY [facility] Diltiazem HCl 180 mg 09/04/24 20:00 Diltiazem Cd 180 Mg Capcr PO 10/04/24 19:59 BID [facility] Docusate Sodium 100 mg 09/04/24 07:27 Docusate Sodium 100 Mg Cap PO 10/04/24 07:26 BID PRN PRN Constipation Famotidine 20 mg 09/04/24 20:00 Famotidine 20 Mg Tab PO 10/04/24 19:59 BID [facility] Finasteride 5 mg 09/05/24 08:30 Finasteride 5 Mg Tab PO 10/05/24 08:29 DAILY [facility] Furosemide 40 mg 09/05/24 08:30 Furosemide 40 Mg Tab PO 10/05/24 08:29 DAILY [facility] Gabapentin 300 mg 09/04/24 06:00 Gabapentin 300 Mg Cap PO 09/04/24 23:59 PREOP [facility] Ringer's Solution 1,000 mls @ 80 mls/hr 09/04/24 06:00 IV 09/04/24 23:59 INFUSION TADEO Cefazolin Sodium/Dextrose 2 gm in 50 mls @ 100 mls/hr 09/04/24 06:00 Ancef Duplex IVPB 09/04/24 23:59 PREOP [facility] Tranexamic Acid/Sodium Chloride 1,000 mg in 100 mls @ 600 mls/hr 09/04/24 08:15 IVPB 10/04/24 08:14 PREOP [facility] IV Miscellaneous Supplies 1 each 09/04/24 06:00 Iv Access IV 09/04/24 23:59 DIRECTED [facility] Losartan Potassium 25 mg 09/05/24 08:30 Losartan 25 Mg Tab PO 10/05/24 08:29 DAILY [facility] Non-Formulary Medication 2,000 unit 09/05/24 08:30 Cholecalciferol (Vitamin D3) [Vitamin D3] PO 10/05/24 08:29 DAILY [facility] Non-Formulary Medication 2 puff 09/04/24 20:00 Fluticasone Propion-Salmeterol [Advair Hfa] IH 10/04/24 19:59 BID [facility] Non-Formulary Medication 10 mg 09/05/24 08:30 Terazosin PO 10/05/24 08:29 DAILY [facility] Ondansetron HCl 4 mg 09/04/24 07:27 Ondansetron 4 Mg/2 Ml Vial IVP 10/04/24 07:26 Q6H PRN PRN Nausea Oxycodone HCl 0 mg 09/04/24 07:27 Oxycodone 5 Mg Tab PO 10/04/24 07:26 Q3H PRN PRN Pain Polyethylene Glycol 17 gm 09/04/24 07:27 Polyethylene Glycol 3350 17 Gm Packet PO 10/04/24 07:26 BID PRN PRN Constipation Sodium Chloride 0 ml 09/04/24 06:00 Normal Saline Flush 10 Ml Syr IV 09/04/24 23:59 PRN PRN Sodium Chloride 0 ml 09/04/24 06:00 Normal Saline 10 Ml Vial IJ 09/04/24 23:59 DIRECTED PRN Sterile Water 0 ml 09/04/24 06:00 Water,Injection,Sterile 10 Ml Vial IJ 09/04/24 23:59 DIRECTED PRN Tranexamic Acid 1,300 mg 09/04/24 20:00 Tranexamic Acid 650 Mg Tab PO 09/04/24 20:01 QPM [facility] PFSH Active Problems Active Problems: Problem Status Onset Code Nail dystrophy Acute L60.3 Asthma-COPD overlap syndrome Acute J44.89 Callus Acute L84 Plantar verruca Acute B07.0 Ingrown toenail Acute L60.0 Ulcer of right foot limited to breakdown of skin Acute L97.511 Skin lesion of hand Acute L98.9 Irregular bowel habits Acute R19.8 Thickening of wall of gallbladder Acute K82.8 Lesion of pinna Acute H61.109 Chronic left hip pain Acute M25.552, G89.29 Abnormal liver enzymes Acute R74.8 Tinea pedis Acute B35.3 Skin lesion Acute L98.9 Onychomycosis Acute B35.1 Kidney disease, chronic, stage III (moderate, EGFR 30-59 ml/min) Acute N18.30 Sciatica, right side Acute M54.31 Chronic diarrhea Acute K52.9 Actinic keratosis Acute L57.0 Post-viral cough syndrome Acute R05.8 Venous insufficiency Acute I87.2 Edema Acute R60.9 Nail dystrophy Acute L60.3 Change in stool habits Acute R19.4 Back pain Acute M54.9 Domestic concerns Acute Z65.8 Basal cell carcinoma of left hand Acute C44.619 Pre-operative cardiovascular examination Acute Z01.810 Congestive heart failure Chronic I50.9 Rectal bleeding Acute K62.5 Alcohol use disorder Acute Dyspnea on exertion Acute R06.00 Macrocytosis Acute D75.89 CKD (chronic kidney disease) Acute N18.9 Sleep apnea Acute G47.30 Arthritis of left hip Chronic M16.12 Umbilical hernia Acute K42.9 Primary osteoarthritis of right knee Acute 05/18/15 M17.11 Obesity Chronic E66.9 Hypertension Acute I10 Hyperlipidemia Acute E78.5 Gastroesophageal reflux disease Acute K21.9 Elevated PSA Acute R97.20 MUNGUIA (dyspnea on exertion) Acute 11/13/15 R06.09 Chronic obstructive bronchitis Acute 03/02/16 J44.9 Benign prostatic hyperplasia Acute N40.0 Atrial fibrillation Acute 11/28/14 I48.91 Medical History Medical History Basal cell carcinoma of left ear Vertigo (03/13/12) Trochanteric bursitis of left hip (12/05/14) Tobacco use disorder cigars Left shoulder pain (08/18/14) Hematuria (07/06/17) Surgical History Surgical History S/P ventral herniorrhaphy (~05/29/19) Rotator Cuff Repair (~2001) LEFT Colonoscopy - MAC 2004-NEG 2009-NEG Tobacco Smoking/Tobacco Use Status: Current-Occasional Tobacco Type: cigars Per week: 5 Alcohol Alcohol Intake: current Alcohol intake frequency: 0-2 drinks per day Alcohol type: hard liquor Substance Use Substance use: Never Substance use type: does not use Vital Signs and Lab Results Vital Signs Most Recent Vital Signs in EMR: Most Recent Vital Signs Temp Pulse Resp BP Pulse Ox 36.3 C L 76 16 134/116 H 98 09/04/24 08:20 09/04/24 08:20 09/04/24 08:20 09/04/24 08:20 09/04/24 08:20 Lab Results Blood Type / Crossmatch: No Data to Display Complete Blood Count: No Data to Display Complete Metabolic Panel: No Data to Display Liver Function Panel: No Data to Display Coagulation Panel: No Data to Display Cardiac Panel: No Data to Display Arterial Blood Gas: No Data to Display Venous Blood Gas: No Data to Display Pancreas Panel: No Data to Display Thyroid Panel: No Data to Display Infectious Disease: No Data to Display Blood Cultures: No Data to Display Toxicology Panel: No Data to Display Imaging and Studies Imaging and Studies Study information below may be from another EMR and interpreted by another provider. Please see original notes in EMR for more complete details. EKG Summary: Conclusion Atrial fibrillation...V-rate 57- 89, irreg A-activity Ventricular premature complex...V complex w/ short R-R interval Echocardiogram Summary: Conclusion Normal left ventricular wall thickness and chamber size. Ejection fraction is 40 to 45% with global hypokinesis Normal right ventricular size , mild hypokinesis Both atria are severely dilated The aortic valve is trileaflet and mildly sclerotic with mild to moderate regurgitation Mildly thickened mitral leaflets. Mild eccentric mitral regurgitation Mild tricuspid regurgitation. Estimated right ventricular systolic pressure is 32 mmHg Pulmonary Function Summary: Date of service: 07/11/24 Time of Service: 14:57 Pulmonary Function Test Result Indications: Dyspnea Interpretation Spirometry: Mild airflow limitation. No bronchodilator response. Lung Volumes: Air trapping present Diffusion Capacity: Moderately reduced diffusion Airway Pressure: Increased airways resistance. Impression Mild airflow obstruction with air trapping and a reduced diffusion. Clinical Correlation therefore is recommended. Anesthesia Assessment and Plan Anesthesia History Personal History: No History of Anesthesia Complications Family History: No Family History of Anesthesia Complications Exercise Tolerance Exercise Tolerance: Metabolic Equivalents<4 Pertinent Negatives Pertinent Negatives: No Symptoms of GERD Cardiac & Pulmonary Exam Cardiac Exam: Normal S1/S2 Heart Sounds Pulmonary Exam: Clear Bilateral Breath Sounds Implantable Cardiac Device Does patient have a Pacemaker or an ICD?: No Airway Exam Known Difficult Airway: No Mallampati Class: 2 Mouth Opening: Normal (> 3cm) Thyromental Distance: Greater than 3 cm Neck Range of Motion: Full ROM Neck Circumference: Normal Teeth Condition: Normal Dentition ASA Classification ASA Score: ASA 3 Emergency Case?: No NPO Status NPO Status: NPO Clears >2 hours, Solids >8 hours Anesthesia Plan Resuscitation Status: Full Code Anesthesia Technique: Spinal Anesthesia Airway Planned: Natural Airway Monitors Used: Standard Monitors
[2024-09-04] MEDS: Lactated Ringers 1,000 ML 80 ML IV (10:00)
[2024-09-04] MEDS: ceFAZolin 2 GM/50 ML BAG IVPB (10:16)
[2024-09-04] MEDS: TRANEXAMIC ACID/SOD. CHL. 1,000 MG/100 ML BAG 600 MG IVPB (10:39)
--- NOTE | 2024-09-04 11:38 | W.PM.OP ---
Operative Note Operative Note PRE-OP DIAGNOSIS: Left Hip Osteoarthritis POST-OP DIAGNOSIS: same PROCEDURE: Left Anterior Total Hip Arthroplasty with Intraoperative Navigation SURGEON: David Lincoln [employer]OP MANAGER: Fadi Cherry ANESTHESIA TYPE: Spinal Refer to Anesthesia Record ESTIMATED BLOOD LOSS: 100 PATHOLOGY: none sent TOURNIQUET TIME: 0 COMPLICATIONS: None Patient was transported to: PACU Patient's condition: stable Implants: 1. Depuy Agra Acetabular Component, 56mm 2. Depuy Acetabular Liner, [id number] 3. Depuy Actis High Offset Collared Femoral Stem, Size 7 4. Depuy Altrx Ceramic Femoral Head, Size 36+5mm Indications: I have seen Nicolas in clinic for symptoms of hip arthritis, confirmed with radiographic findings. [NAME] has exhausted nonoperative methods and was having significant limitations in daily function and desired better function and less pain. I discussed the technical details of a hip replacement. I explained the risks of the procedure to include, but not limited to, bleeding, infection, pain, stiffness, fracture, damage to nerves and vessels, damage to muscles and tendons, loosening, instability, leg length inequality, need for repeat procedure, blood clot and cardiopulmonary demise. Despite these risks, Nicolas elected to proceed. Findings: There was significant signs of arthritis throughout the hip. Procedure Description: Nicolas was greeted in the preoperative holding area where the correct side was identified and marked. The consent was reviewed with the patient and signed. The history and physical was updated. All questions were answered. He was taken back to the operating room. A spinal anesthestic was then administered. The feet were wrapped with cast padding and Coban and then placed into the boot liners and then into the boots. Care was taken to protect the skin and make sure the heels were fully down and the boots were stable. The patient was then positioned onto the HANA table. Both legs were held in a neutral position. SCDs were applied. The patient was then slid down onto a peroneal post. Prophylactic antibiotics in the form of Cefazolin were administered. 1g of Tranxemic Acid was given intravenously within 30 minutes of incision. The left leg was then prepped with Chloraprep and draped in a standard fashion. A second prep with Chloraprep was performed prior to placement of a shower-curtain type drape with Iodine impregnated skin protection. A timeout to confirm correct identity, side and site, procedure, allergies, anesthesia, and medical concerns was performed. An obliquely oriented incision was made starting lateral to the ASIS and running distal over the Tensor Fascia Matilda (TFL) muscle belly toward the fibular head, approximately 10cm. The skin and soft tissue was dissected sharply, through Mariana?s fascia, and to the fascia of the TFL. With the fascia and superior border of the IT band identified, the fascia was incised with a new knife just above any perforators from the IT band. The TFL muscle belly was bluntly dissected away from the fascia and moved laterally. The fat between TFL and rectus was identified to ensure the dissection was not within the TFL. Blunt dissection created space between abductors and the capsule and retractor was placed over the lateral femoral neck. The fibers of the rectus femoris tendon were identified and these were freed from the anterior capsule. A second cobra retractor was placed around the medial femoral neck. The TFL was further retracted laterally to show the deep fascia. Careful dissection through this layer identified three main crossing vessels of the lateral femoral circumflex. These were cauterized in multiple locations and then cut without any noticeable bleeding. The TFL was further released bluntly from the deep fascia to expose anterior hip capsule and fat The soft tissue orthopaedic retractor was then placed beneath the TFL and against sartorius and medial soft tissues to protect and retract the soft tissues. A T-capsulotomy was then performed starting at the superior lateral acetabulum and moving distally to the intertrochanteric ridge. These capsular flaps were tagged with a No. 1 Vicryl and elevated from within. The capsular flaps were released to the shoulder of the lateral neck and to the lesser trochanter to give excellent visualization of the proximal femur. A neck osteotomy was performed using an oscillating saw based on preoperative templates. This cut started in the shoulder and of the lateral neck and exited medially. The saw was at all times directed medially to avoid injury to the greater trochanter. Gross traction was applied to the leg and the osteotomy opened. The femoral head was removed with a corkscrew, making sure to protect the TFL on its exit. Traction was released after head removal. This was measured on the back table to determine the starting reamer size. Portions of the rectus obscuring visualization were minimally elevated off the superior acetabulum. An anterior retractor was placed over the anterior wall between capsule and labrum and attached to the Gripper retraction system. The femur was rotated to 90 degrees and medial capsule was fully released until the lesser trochanter was palpable and visible; the femur was returned to 30 degrees. A posterior retractor was placed similarly between capsule and labrum. This provided excellent visualization. The contents of the cotyloid fossa were removed with electrocautery and the labrum was removed with a knife. There was a notable floor osteophyte. There was significant chondromalacia of the superior acetabulum. Acetabular reaming began with a 50mm reamer. This first reaming was directed anterior to posterior and medial to get down to the true floor. This was inspected and reamed until the true floor was reached. The anterior retractor was then released and entry and exit was provided by traction on the capsular flaps. I then reamed sequentially up to a 56mm reamer where good fit was obtained. The larger reamers were oriented based on anatomical reference of the anterior and lateral larose to ensure proper abduction and anteversion. Positioning and size was confirmed with the fluoroscopy. A 56mm Depuy Agra acetabular component was selected. The acetabulum was reamed around the periphery with the selected acetabular size to prevent a rim fit. The deep tissues were irrigated. The acetabular component was then impacted in a position of about 40-45 degrees of abduction and 15-20 degrees of anteversion, using the patient?s anatomy as the ultimate landmark. Fluoroscopy was used to confirm this. There was excellent carpet cleaning technician of the acetabular component and the inserting handle was removed. The acetabular liner, Depuy [id number] polyethylene liner, was inserted and lined up with the tines of the acetabular component. There was no soft tissue interposition. The liner was then impacted into position and confirmed to be well-seated. A portion of the gilbert-articular cocktail was then injected around the acetabulum into the capsule and periosteum. This cocktail consisted of 123mg of Ropivacaine, 0.25mg of Epinephrine, 0.04mg of Clonidine, and 15mg of Ketorolac, diluted to 50cc. The leg was rotated to 120 degrees. Any remaining medial capsule was released until the lesser trochanter was easily palpable. A retractor was placed medially. The lateral capsule was further released into the shoulder to allow access to the greater trochanter. A Borges retractor was placed over the greater trochanter which allowed the trochanter to flip in front of the capsule for excellent exposure. The leg was brought down into maximal extension and 20 degrees of adduction while ensuring there was no impingement on the acetabulum. Any remnant capsule within the trochanter was released. Piriformis and obturator externis were identified and protected. There was excellent access to the proximal femur. The lateral neck remnant was removed with a rongeur. A blunt canal probe was used to identify the canal and trajectory for later broaching. A box osteotome initiated the broach course. A small curved rasp and a curved curette were used to work laterally. Broaching then began with a starter Actis broach. This was inserted manually around the trochanter and into the canal before mallet blows. The broach was seated to a few millimeters below the cut level based on the neck cut and the preoperative template. Sequential broaching was continued with the [employer] pneumatic broaching device until a tight fit was obtained with good rotational control of the femur. A trial high offset neck was inserted along with a +1.5 trial head. The leg was brought out of extension and adduction and then reduced with traction and internal rotation. The leg was stable anteriorly in a position of 30 degrees of extension and 90 degrees of external rotation. Fluoroscopy was used to ensure there was no fracture and the stem was seated well. Leg lengths were checked with an AP pelvis and pelvic reference points. Cinario navigation system was used to confirm appropriate positioning and leg length and offset. Once content with the desired offset and leg lengths, the leg was brought back into extension, external rotation and adduction. The periosteum and surrounding tissue was injected with remaining portion of the gilbert-articular cocktail. The proximal femur was irrigated as well as the deep tissues. The Depuy Actis High Offset collared stem, size 7, was then manually inserted into the proximal femur making sure to control rotation. It was then malleted into position with light blows, giving breaks to allow bone expansion and decrease risk of fracture. The selected Depuy Altrx Ceramic Head, size 36+5mm, was then placed onto the clean and dry trunnion and secured with impaction onto the tapered fit. The leg was brought back out of extension and adduction and reduced with traction and internal rotation. Stability was confirmed with no shuck at 90 degrees of external rotation and 30 degrees of extension. No impingement through range of motion arc. Final x-ray images were obtained with fluoroscopy to confirm adequate positioning and no intraoperative fracture. The deep tissues were thoroughly irrigated with Surgiphor, betadine solution. This was allowed to sit in the wound for 3 minutes before being thoroughly irrigated out with normal saline. The capsule was then reapproximated with the previously placed sutures and the indirect head of the rectus was inspected and reapproximated with a #1 Vicryl. The TFL fascia was finally closed with a No. 2 Stratafix, barbed suture. Deep tissues were then reapproximated with 0 Vicryl and a running 2-0 Vicryl. The skin was closed with a running 4-0 Monocryl in a subcuticular fashion. This was reinforced with skin glue. A Mepilex silver dressing was applied. At the end of the case, all counts were correct. Nicolas was transferred to the hospital bed without difficulty and suffering no apparent complication. He has a good prognosis. Physical therapy will start today and without restrictions, weight-bearing as tolerated. Apixaban 2.5mg BID will be used for DVT prophylaxis. Date of Procedure: 09/04/24
--- NOTE | 2024-09-04 11:42 | DI.RAD_ITS ---
Exam(s) XR HIP LT IN OR EXAM: XR HIP LT IN OR CLINICAL HISTORY: severe left hip osteoarthritis TECHNIQUE: 2D and realtime digital imaging was performed. CONTRAST MATERIAL: Refer to procedure report. COMPARISON: CR XR HIP LT COMPLETE AP PELVIS from 12/08/2023 FINDINGS: Fluoroscopy was provided for Dr. Lincoln during the performance of a left total hip arthroplasty. Please refer to the procedure report for complete details. Ka,r=5.56 mGy IMPRESSION: RADIATION DOSE DELIVERED: 0.0 0.0 0
--- NOTE | 2024-09-04 13:15 | W.PC.ACHO ---
Registration Status: Primary Language: Preferred Language: Medical / Surgical History (Last Reviewed 09/04/24 @ 09:05 by David Lincoln MD) Basal cell carcinoma of left ear Vertigo (03/13/12) Trochanteric bursitis of left hip (12/05/14) Tobacco use disorder Left shoulder pain (08/18/14) Hematuria (07/06/17) (Last Reviewed 09/04/24 @ 09:05 by David Lincoln MD) S/P ventral herniorrhaphy (~05/29/19) Rotator Cuff Repair (~2001) Colonoscopy - MAC Most Recent Vital Signs Temperature 36.6 C 09/04/24 13:12 Temperature Source Tympanic 09/04/24 13:12 Pulse 62 09/04/24 13:12 Pulse Rhythm Irregular 09/04/24 08:20 Pulse 64 09/04/24 12:37 Respiratory Rate 18 09/04/24 13:12 Respiratory Depth Normal 09/04/24 08:20 Blood Pressure 137/47 L 09/04/24 13:12 Blood Pressure Mean 77 09/04/24 13:12 Pulse Oximetry 90 L 09/04/24 13:12 Respiratory End-tidal CO2 30 09/04/24 12:37 Oxygen Delivery Method Room Air 09/04/24 13:12 Oxygen Flow Rate 0 09/04/24 13:12 Pain Level 0 09/04/24 12:45 Allergies metoprolol Adverse Reaction (Verified 09/04/24 09:16) fatigue Active Medications Generic Name Dose Route Start Last Admin Trade Name Geeq PRN Reason Stop Dose Admin Acetaminophen 1,000 mg 09/04/24 06:00 09/04/24 09:26 Acetaminophen 500 Mg Tab PO 09/04/24 23:59 1,000 mg PREOP TADEO Administration Celecoxib 400 mg 09/04/24 06:00 09/04/24 09:27 Celecoxib 200 Mg Cap PO 09/04/24 23:59 400 mg PREOP TADEO Administration Ringer's Solution 1,000 mls @ 80 mls/hr 09/04/24 06:00 09/04/24 12:37 IV 09/04/24 23:59 80 mls/hr INFUSION TADEO Infusion Cefazolin Sodium/Dextrose 2 gm in 50 mls @ 100 mls/hr 09/04/24 06:00 09/04/24 10:39 Ancef Duplex IVPB 09/04/24 23:59 Infused PREOP TADEO Infusion Tranexamic Acid/Sodium Chloride 1,000 mg in 100 mls @ 600 mls/hr 09/04/24 08:15 09/04/24 10:49 IVPB 10/04/24 08:14 Infused PREOP TADEO Infusion IV IV Catheter Type [Left] Peripheral IV IV Catheter Type [Left Forearm Peripheral IV ] IV Catheter Gauge [Left] 18 IV Catheter Gauge [Left 20 Forearm] Diet Orders Category Date Time Status Regular/Normal [DIET] Nutrition 09/04/24 Lunch Active Intake and Output - 24 Hour Total 08/09/24 11:05 thru 09/04/24 12:45 Intake Total 650 Output Total 100 Balance 550 Weight 81.1 kg Intake: IV 650 Output: Estimated Blood Loss 100 Other: Emesis Description None Problems (Last Reviewed 09/04/24 @ 09:05 by David Lincoln MD) Arthritis of left hip (Chronic) v v v v v v v v v Sending and/or Receiving Nurses: Please use comment section below to note any information pertinent to the patient hand-off not included above. Information / Comments: Report received from: SIXTO Norman report given, all questions answered, pT alert and oriented upon arrival to unit.
[2024-09-04] MEDS: oxyCODONE 5 MG TAB PO ×2 (14:21→17:57)
--- NOTE | 2024-09-04 14:34 | W.ANESPOSTOP ---
Postoperative Evaluation Date, Time and Location Date Performed: 09/04/24 Time Performed: 14:34 Patient Location: Med/Surg Vital Signs Most Recent Imported Vital Signs: Most Recent Vital Signs Temp Pulse Resp BP Pulse Ox 36.1 C L 68 16 144/47 H 93 09/04/24 14:27 09/04/24 14:27 09/04/24 14:27 09/04/24 14:27 09/04/24 14:27 Pain Score Most Recent Pain Score: Most Recent Pain Score Pain Level 4 09/04/24 14:21 Assessment Mental Status: Awake (Alert & Oriented to Patient Baseline) Airway and Respiratory Function: Patent airway with normal (patient baseline) respiratory exam Cardiovascular Function: Hemodynamically Stable Hydration Status: Adequately Hydrated Nausea & Vomiting: No Nausea or Vomiting Pain: Pain is tolerable per patient Peripheral Nerve Block: Patient did not receive a nerve block
[2024-09-04] MEDS: ceFAZolin 1 GM/50 ML BAG IVPB ×2 (15:43→23:44)
--- NOTE | 2024-09-04 16:15 | IN_ITS ---
PT Notes Visit Reasons: L THR Physical Therapy Initial Evaluation Date: 09/04/24 Referring Doctor: Dr. Lincoln PT Orders: PT CONSULT: s/p ortho surgery Precautions: standard Patient Profile/Admitting Diagnosis: Nicolas is an 84 year old male with left hip OA, now s/p left REGGIE, post op day #0. He's been admitted overnight for observation. Social History/Home Situation: Nicolas lives in a private home with 3STE. Typically ambulates with cane, although has been using a FWW for the past week due to pain from his arthritic hip. Drives independently. Retired, but remains active in the community, serving on the [employer] in [place]. Gets some meal assistance from his son. Daughter, Laurie, is present at time of eval, and will be staying with Nicolas as he recovers. Equipment Owned/DME: cane, FWW Subjective: Nicolas states that he is feeling well. He's agreeable to getting up to the chair. Objective: Vitals: Resting 117/98, HR 65 Post-rx: 138/56, HR 68 General Observation: Resting in bed with TEDS bilat, intermittent compression to bilat LEs, IV in LUE. Mental Status: A&Ox3. BILL MOORE'S SLOUGH. Pain: 2/10 ROM: Right Upper Extremity: WFL Left Upper Extremity: WFL Right Lower Extremity: WFL Left Lower Extremity: Functionally demonstrates hip flexion to 80*. Knee and ankle motion WFL. Strength: Right Upper Extremity: WFL Left Upper Extremity: WFL Right Lower Extremity: WFL Left Lower Extremity: Able to pump ankles, demonstrate good quad activation with quad set. Knee extension 3/5 or greater. Sensation: intact distally Bed Mobility/Transfers: Supine to sit: mod A x 1 Sit to stand : CGA Stand to sit CGA Gait: Ambulates 50' x 1 with FWW, CGA initially, progressing to SBA. Demonst rates slow gait with shortened stride length bilat. Balance: Static Sitting: good Dynamic Sitting: good Static Standing: fair Dynamic Standing: fair Special Tests: Mobility Limitations Standardized Measure [facility] AM-PAC 6 clicks Basic Mobility Inpatient Short Form: Raw Score: 22 CMS Score: 21% impairment Informed Consent/Education: Patient instructed in purpose of PT consult. Packet containing REGGIE exercise protocol has been given to patient. Education and training on initial set of exercises that can be done at home have been completed with patient. Treatment: Initial Evaluation (47767) Therapeutic Exercises (85482n4): Instruction in the following: Access Code: [email or web address] URL: [email or web address] Date: 09/04/2024 Prepared by: Lizette Mckee Exercises - Supine Ankle Pumps - 3 x daily - 7 x weekly - 1 sets - 10 reps - Supine Quadricep Sets - 3 x daily - 7 x weekly - 1 sets - 10 reps - 10 seconds hold - Gluteal Sets - 3 x daily - 7 x weekly - 1 sets - 10 reps - 10 seconds hold - Seated Long Arc Quad - 3 x daily - 7 x weekly - 1 sets - 10 reps Assessment: Patient presents with clinical signs and symptoms consistent with current/admitting diagnoses that have resulted to mobility limitations, gait instability, generalized weakness, and impairment of motor control as demonstrated by the following impairment level findings: 1. Decreased strength to LLE major muscle groups 2. Impaired standing balance 3. Limitation of joint range of motion in left knee 4. gait impairments Impairments are contributing to the following functional limitations: 1. Inability to safely ambulate without assistive device 2. Increase completion time for mobility ADL performance 3. Increased fall risk Patient is assessed as low complexity based on the following: History: 84-year-old male with impairment level findings, functional limitations, and past medical history as indicated above Examination: Demonstrable impairment in strength, balance, and mobility level with underlying impairments and functional limitations as documented above Presentation: stable Decision Making: low complexity Goals: N/A. PT evaluation and 1-2 treatment sessions only for functional mobility training using recommended AD and for HEP instruction. Plan of Care/Treatment Plan: N/A. PT evaluation and 1-2 treatment session only for functional mobility training using recommended AD and for HEP instruction. DISCHARGE RECOMMENDATIONS: Home with family assistance and PT TREATMENT CODE/TIME: Treatment Time: 0775-1623 (17067, [id number]) Thank you for the opportunity to participate in the care of this patient. Lizette Mckee, PT, DPT [facility] All Active Problems Nail dystrophy (Acute) Asthma-COPD overlap syndrome (Acute) Callus (Acute) Plantar verruca (Acute) Ingrown toenail (Acute) Ulcer of right foot limited to breakdown of skin (Acute) Skin lesion of hand (Acute) Irregular bowel habits (Acute) Thickening of wall of gallbladder (Acute) Lesion of pinna (Acute) Chronic left hip pain (Acute) Abnormal liver enzymes (Acute) Tinea pedis (Acute) Skin lesion (Acute) Onychomycosis (Acute) Kidney disease, chronic, stage III (moderate, EGFR 30-59 ml/min) (Acute) Dx code required for routine at-risk foot care with Podiatry Sciatica, right side (Acute) Chronic diarrhea (Acute) Actinic keratosis (Acute) Post-viral cough syndrome (Acute) Venous insufficiency (Acute) Edema (Acute) Nail dystrophy (Acute) Change in stool habits (Acute) Back pain (Acute) Domestic concerns (Acute) Basal cell carcinoma of left hand (Acute) 02/2021, s/p Mohs at [facility] Pre-operative cardiovascular examination (Acute) Congestive heart failure (Chronic) Rectal bleeding (Acute) Alcohol use disorder (Acute) Dyspnea on exertion (Acute) Macrocytosis (Acute) Normal folate and B12 CKD (chronic kidney disease) (Acute) Sleep apnea (Acute) uses device Arthritis of left hip (Chronic) Injection under fluroscopy: 06/13/19 Umbilical hernia (Acute) Primary osteoarthritis of right knee (Acute 05/18/15) Injected: 05/16/19 Obesity (Chronic) Hypertension (Acute) Hyperlipidemia (Acute) Gastroesophageal reflux disease (Acute) Elevated PSA (Acute) MUNGUIA (dyspnea on exertion) (Acute 11/13/15) neg cxr, stress [place] 10[place]07 [facility] Chronic obstructive bronchitis (Acute 03/02/16) Benign prostatic hyperplasia (Acute) Atrial fibrillation (Acute 11/28/14) Medical History Basal cell carcinoma of left ear Vertigo (03/13/12) Trochanteric bursitis of left hip (12/05/14) Tobacco use disorder cigars Left shoulder pain (08/18/14) Hematuria (07/06/17) Surgical History S/P ventral herniorrhaphy (~05/29/19) Rotator Cuff Repair (~2001) LEFT Colonoscopy - MAC 2003-NEG 2009-NEG
[2024-09-04] MEDS: Normal Saline Flush 10 ML SYR IV ×2 (16:39→20:12)
[2024-09-04] MEDS: Tranexamic Acid 650 MG TAB 1300 MG PO (20:10)
[2024-09-04] MEDS: Famotidine 20 MG TAB PO (20:11)
[2024-09-04] MEDS: Apixaban 2.5 MG TAB PO (20:11)
[2024-09-04] MEDS: Celecoxib 200 MG CAP PO (20:11)
[2024-09-04] MEDS: dilTIAZem CD 180 MG CAPCR PO (20:11)
[2024-09-04] MEDS: Budesonide/Formoterol 80/4.5 6.9 GM 60 PUFF INH IH (20:44)
[2024-09-05] MEDS: ceFAZolin 1 GM/50 ML BAG IVPB (07:44)
[2024-09-05] MEDS: Apixaban 2.5 MG TAB PO (07:45)
[2024-09-05] MEDS: Cholecalciferol (Vitamin D3) 1,000 UNIT TAB 2000 UNITS PO (07:46)
[2024-09-05] MEDS: Losartan 25 MG TAB PO (07:46)
[2024-09-05] MEDS: Furosemide 40 MG TAB PO (07:46)
[2024-09-05] MEDS: Famotidine 20 MG TAB PO (07:46)
[2024-09-05] MEDS: Celecoxib 200 MG CAP PO (07:47)
[2024-09-05] MEDS: dilTIAZem CD 180 MG CAPCR PO (07:47)
[2024-09-05] MEDS: Acetaminophen 500 MG TAB 1000 MG PO ×2 (07:47→14:49)
[2024-09-05] MEDS: Dexamethasone 4 MG TAB PO (07:47)
[2024-09-05] MEDS: Finasteride 5 MG TAB PO (07:48)
[2024-09-05 08:15] VITALS: BP 140/60; PULSE 76; RESP 20; TEMP 36.2; O2SAT 94
[2024-09-05] MEDS: Budesonide/Formoterol 80/4.5 6.9 GM 60 PUFF INH IH (08:15)
[2024-09-05] MEDS: oxyCODONE 5 MG TAB PO ×2 (10:33→14:49)
--- NOTE | 2024-09-05 12:10 | PT.INTREAT ---
PT Notes Visit Reasons: L THR Inpatient Physical Therapy Treatment Note [facility] Date: 09/05/24 PRECAUTIONS:WBAT LLE SUBJECTIVE: I am feeling good. I have barely any pain . OBJECTIVE: pleasant smiling male seated in chair watching news. ice to left hip? PAIN: /10 pre increased to 4/10 Pt agreed to take pain med provided by RN Nicolas DOYLE: ??monitored by Nursing Therapeutic Activities ([id number][]): Direct one-on-one instruction in dynamic activities to improve functional performance. ? BED MOBILITY/TRANSFERS? Supine-sit: Supervision? Sit-supine: CGA with increased time for LLE ? Sit-stand:SBA ? Stand-sit: SBA ? Bed-Chair: SBA with FWW? Chair-bed: SBA with FWW Provided skilled cues and instruction on performance and technique throughout Facilitated ambulation ? Assistive Device: FWW? with w/c follow ? Weight bearing: WBAT Assist: SBA ? Distance:? 50 feet x 3 seat rest between? Deviation: slow lulú, slight reciprocal pattern as increase distance increased antalgic pattern ( pt declined premedicated for session. ) ? STAIRS: 3 4 steps? and 2 6 steps with rails SBA with continuous cues for sequencing step to pattern x 2 trials? 09176?supine and sit ?Therex per REGGIE protocol x 10 reps LLE? ASSESSMENT:? Pt tolerated session well despite declining pain meds prior. Anticipate he will be d/c to home today . Pt ended session with ice to left hip and thigh. PLAN: continue until d/c to home TREATMENT CODE/TIME: 94447,37483 / [id number] DISCHARGE RECOMMENDATION: Home with HEP and PT outpatient when appropriate
--- NOTE | 2024-09-05 12:57 | DSE_ITS ---
Date of service: 09/05/24 Time of Service: 07:50 DS: Diagnosis Discharge Diagnosis (1) Arthritis of left hip: Status: Chronic Discharge Plan Disposition Patient Disposition: Home W/Home Health Services Condition: Good Discharge Details Reason For Visit: L THR Admit Date/Time: 09/04/24 14:05 Admit Provider: David Lincoln Attending Provider: David Lincoln Primary Care Provider: Dez Jones Home Meds and New Rx's Prescriptions: New acetaminophen 500 mg tablet 1,000 mg PO TID Qty: 90 3RF celecoxib 200 mg capsule 200 mg PO BID Qty: 60 0RF dexamethasone 4 mg tablet 4 mg PO DAILY Qty: 2 0RF docusate sodium 100 mg capsule 100 mg PO BID PRNQty: 28 0RF pantoprazole 40 mg tablet,delayed release (DR/EC) 40 mg PO DAILY Qty: 14 0RF oxycodone 5 mg tablet 5 mg PO Q4H MDD 6 tabs PRN (Reason: pain) Qty: 12 0RF Continued finasteride [Proscar] 5 mg tablet 5 mg PO DAILY Qty: 90 4RF furosemide [Lasix] 40 mg tablet 40 mg PO DAILY Qty: 90 3RF famotidine 20 mg tablet 20 mg PO BID Qty: 180 3RF albuterol sulfate 90 mcg/actuation HFA aerosol inhaler 2 puff inhalation QID PRN (Reason: shortness of breath or wheezing) Qty: 8.5 6RF Rx Instructions: Take as needed 4 times a day for shortness of breath or wheezing terazosin 10 mg capsule 10 mg PO DAILY Qty: 90 3RF ketoconazole 2 % cream 1 applic topical DAILY Qty: 120 6RF Rx Instructions: Apply to toenails once daily losartan 25 mg tablet 25 mg PO DAILY Qty: 90 3RF vitamin B complex [B-Complex] 1 EACH tablet 1 tab PO DAILY omega-3 fatty acids-fish oil 1 EACH capsule 1 cap PO QAM cholecalciferol (vitamin D3) [Vitamin D3] 2,000 UNIT capsule 2,000 unit PO DAILY Medial OA Brace UD DAILY Qty: 1 0RF Patient Comments: pt. states he is not using Eliquis 2.5 mg tablet 2.5 mg PO BID Qty: 180 3RF diltiazem HCl 180 mg capsule,extended release 24hr 180 mg PO BID Qty: 180 3RF Discontinued acetaminophen [Tylenol Extra Strength] 500 MG tablet 500 mg PO PRN No Action budesonide-formoterol [Symbicort] 80-4.5 mcg/actuation HFA aerosol inhaler 2 puff INHALATION BID Patient Comments: INHALE TWO PUFFS BY MOUTH TWICE A DAY Discharge Instructions Additional Instructions: Total Hip Discharge Instructions Activity: The most important activity is to walk. You should try to take short walks a few times a day. You have no restrictions on movement or positioning, but do not try to force what you do. You will find some stiffness and weakness with hip flexion (lifting your knee). Do not try to strengthen this too early, continue to practice walking and stairs and this will come. - Outpatient physical therapy can be helpful to help return you to a normal gait and improve your flexibility and strength. This can start around 2 weeks. For some patients, it?s not necessary. Usually this is determined at the time of discharge or at the first post-operative visit. - You should wear the KELTON hose on both legs for 2 weeks. Dressing: Keep the surgical dressing in place for at least one week. After the first week it may be removed and replace with light gauze and tape or nothing. It may get wet after 3 days but avoid soaking the dressing. If it gets wet, just lightly pat dry. It is important to always keep some gauze between skin folds, especially when you are sitting. Spend some time with the wound exposed when you are lying flat as the incision does wrinkle onto itself. Medications: - You should continue to stay well-hydrated and continue regular home medications. - You should take Tylenol and an anti-inflammatory Celebrex as your primary pain control medications. The Celebrex is currently prescribed to take up to 2 times a day but start with just taking it once a day. If the Celebrex is too expensive or not covered, please call the office for another alternative (Advil/Ibuprofen or Naproxen/Aleve). - You have been prescribed a stronger pain medication Oxycodone for breakthrough pain, take as needed as prescribed. - You have also been prescribed a stomach acid reduction agent Pantoprozole to help reduce stomach acid and reflux. - You have also been prescribed Decadron to help with post-operative nausea and pain. You will take this for two days starting tomorrow. - You will be taking your apixaban for DVT prevention unless instructed otherwise. - If you have constipation you should take Colace or Miralax (both [id number]). It takes most people 3-4 days to have a bowel movement. Follow-up: 2 weeks If you have any acute concerns or questions, please do not hesitate to contact the office at [phone]. You may contact Dr. Lincoln with any questions after hours through the hospital at [phone] or on his cell phone at [phone]. 1. Encounter Date and Reason I certify that Nicolas Valadez was seen by David Lincoln MD on 09/05/24 and that I had a [id number] encounter with this patient that meets the physician face to face encounter requirements. 2. Clinical Findings Supporting Skilled Need and Homebound Status I certify that home health services are medically necessary, include either intermittent prison and/or physical/speech therapy, and that this patient is homebound in that absences from the home require considerable and taxing effort and are infrequent or of short duration, or are attributable to the need to receive medical care. [X] (a) Attached documentation from encounter provides clinical findings supporting skilled need and homebound status (including what assistance patient requires to leave the home). The encounter with the patient was in whole, or in part, for the following medical condition, which is the primary reason for home health care: L THR Mcfp: Nicolas it would require prison at home to assess his multiple medications in the setting of multiple chronic comorbidities. I would asked that you redraw a basic metabolic profile, to include creatinine, to check his mild bump in creatinine in the setting of chronic kidney disease. This should be done within 1 week of discharge from hospital. Physical Therapy: Nicolas would benefit from home health physical therapy occupational therapy to assist him as he recovers from a left hip replacement. He does have weakness and gait abnormalities due to the hip replacement surgery. He had an anterior replacement without formal restrictions. He is using assistive device for ambulation. Speech Therapy: Homebound: Nicolas is unable to leave his home unassisted due to weakness and gait abnormalities. 3. Certification and Authentication I certify that I composed the above information based on my clinical judgement relating to this patient's medical condition and, if applicable, clinical findings communicated to me by the NPP or inpatient physician who performed the Home Health Referral. All further orders will be obtained through Dr. Lincoln Stand Alone Forms: Anesthesia Discharge Inst., Anes.Nerve Block Instructions, Stephani Berumen (DSU) Referrals: David Lincoln MD [ [facility] STAFF PHYSICIAN] - 09/19/24 2:00 pm Activity:: Activity as Tolerated Equipment/Supplies:: Walker Diet:: As Tolerated Discharge Orders Discharge Orders: Discharge Order (Routine); Ordered 09/05/24 Ordered By: David Lincoln DS: Summary Time Spent with Patient providing and/or coordinating discharge services: Greater than 30 minutes Status at Discharge Functional status at discharge: uses cane/walker Overall status at discharge: patient is progressing back to baseline Mental Status: mental status grossly normal Speech and Movement: speech and movement normal Mood: congruent mood Affect: normal affect Quality:SDOH Health Related Social Needs: No Data to Display Exam Narrative Exam Narrative: Sitting up in chair. No acute distress. Alert and orient x 3. Evaluation of the left hip shows a clean dry and intact dressing. No significant skin overlying changes. Able to internally EXOS rotate hip without pain. Sensation tact light touch over the lateral cutaneous nerve, femoral nerve, sciatic nerve. Psych Mental Status: mental status grossly normal Speech and Movement: speech and movement normal Mood: congruent mood Affect: normal affect DS: Data Vitals/I&O Vitals and I&O: Vital Signs Temperature 36.2 C L 09/05/24 08:15 Temperature Source Temporal Artery Scan 09/05/24 08:15 Pulse 76 09/05/24 08:15 Pulse Rhythm Regular 09/04/24 13:19 Pulse 64 09/04/24 12:37 Respiratory Rate 20 09/05/24 08:15 Respiratory Effort Normal 09/04/24 13:19 Respiratory Depth Normal 09/04/24 13:19 Respiratory Pattern Normal 09/04/24 13:19 Blood Pressure 140/60 09/05/24 08:15 Blood Pressure Mean 86 09/05/24 08:15 Pulse Oximetry 94 09/05/24 08:15 Respiratory End-tidal CO2 30 09/04/24 12:37 Oxygen Delivery Method Room Air 09/05/24 08:15 Oxygen Flow Rate 0 09/05/24 08:15 Pain Level 2 09/04/24 20:11 Comment RN notified 09/04/24 14:27 Intake & Output 09/04/24 09/05/24 09/05/24 23:59 11:59 23:59 Intake Total 510.667 / 1060.667 710 / 710 Output Total 500 / 600 400 / 450 50 / 450 Balance 10.667 / 460.667 310 / 260 -50 / 260 Weight 81.1 kg Intake: IV 390.667 / 940.667 110 / 110 Oral 120 / 120 600 / 600 Output: Urine 500 / 500 400 / 450 50 / 450 Other: Urine Color Yellow Yellow Yellow Urine Appearance Clear Clear Urine Odor Normal None Comment pt voided between 25-50 ml into urinal. 25ml,30ml,45ml Emesis Description None Data Completed and Pending Labs on day of discharge: Labs from last 24 hours 09/05/24 12:56: Sodium Pending, Potassium Pending, Chloride Pending, Carbon Dioxide Pending, Anion Gap Pending, BUN Pending, Creatinine Pending, Est GFR (CKD-EPI 2020) Pending, Glucose Pending, Calcium Pending PFSH All Active Problems Nail dystrophy (Acute) Asthma-COPD overlap syndrome (Acute) Callus (Acute) Plantar verruca (Acute) Ingrown toenail (Acute) Ulcer of right foot limited to breakdown of skin (Acute) Skin lesion of hand (Acute) Irregular bowel habits (Acute) Thickening of wall of gallbladder (Acute) Lesion of pinna (Acute) Chronic left hip pain (Acute) Abnormal liver enzymes (Acute) Tinea pedis (Acute) Skin lesion (Acute) Onychomycosis (Acute) Kidney disease, chronic, stage III (moderate, EGFR 30-59 ml/min) (Acute) Dx code required for routine at-risk foot care with Podiatry Sciatica, right side (Acute) Chronic diarrhea (Acute) Actinic keratosis (Acute) Post-viral cough syndrome (Acute) Venous insufficiency (Acute) Edema (Acute) Nail dystrophy (Acute) Change in stool habits (Acute) Back pain (Acute) Domestic concerns (Acute) Basal cell carcinoma of left hand (Acute) 02/2021, s/p Mohs at [facility] Pre-operative cardiovascular examination (Acute) Congestive heart failure (Chronic) Rectal bleeding (Acute) Alcohol use disorder (Acute) Dyspnea on exertion (Acute) Macrocytosis (Acute) Normal folate and B12 CKD (chronic kidney disease) (Acute) Sleep apnea (Acute) uses device Arthritis of left hip (Chronic) Injection under fluroscopy: 06/13/19 Umbilical hernia (Acute) Primary osteoarthritis of right knee (Acute 05/18/15) Injected: 05/16/19 Obesity (Chronic) Hypertension (Acute) Hyperlipidemia (Acute) Gastroesophageal reflux disease (Acute) Elevated PSA (Acute) MUNGUIA (dyspnea on exertion) (Acute 11/13/15) neg cxr, stress echo 10/07 [facility] [place] Chronic obstructive bronchitis (Acute 03/02/16) Benign prostatic hyperplasia (Acute) Atrial fibrillation (Acute 11/28/14) Medical History Basal cell carcinoma of left ear Vertigo (03/13/12) Trochanteric bursitis of left hip (12/05/14) Tobacco use disorder cigars Left shoulder pain (08/18/14) Hematuria (07/06/17) Surgical History S/P ventral herniorrhaphy (~05/29/19) Rotator Cuff Repair (~2001) LEFT Colonoscopy - MAC 2004-NEG 2009-NEG Family History Mother Diabetes Father Personal history of malignant neoplasm Stroke Sister No problems noted. Grandfather No problems noted. Grandfather Personal history of malignant neoplasm Grandmother Personal history of malignant neoplasm Grandmother Personal history of malignant neoplasm Social History Smoking/Tobacco Use Status: Current-Occasional Tobacco Type: cigars Per week: 5 Smoking risk assessment performed?: Yes Alcohol Intake: current Alcohol Intake frequency: 0-2 drinks per day Alcohol type: hard liquor Drug use: Never Substance use type: does not use Caregiver/Support person: Yes (He cares for his disabled he doesn't want to put her in a home) Details: she has severe arthritis, helga feels he does everything for her Household members: none Housing: house Current gender identity: male What is your relationship status?: Panel score (0-1 are the most socially isolated patients): 0 Additional Social history: Lives alone Time Spent with Patient Time Spent with Patient: <45 minutes Time was spent: preparing to see the patient(eg.review tests), obtaining and/or reviewing separately otained hiistory, referring, communicating with other health small animal caretaker and counseling the patient
[2024-09-05 13:27] LABS: Anion Gap 8.2 mmol/L (3-11); BUN 48 mg/dL (7-18); CO2 23.8 mmol/L (21.0-32.0); CREATININE 2.7 mg/dL (0.70-1.30); Calcium 8.8 mg/dL (8.5-10.1); Chloride 105 mmol/L (98-107); Estimated GFR 22.26 (mL/min/1.73m2); Glucose 173 mg/dL (74-106); Potassium 4.6 mmol/L (3.5-5.1); Sodium 137 mmol/L (136-145)
--- NOTE | 2024-09-05 16:28 | PDOC.CMPRO ---
Date of service: 09/05/24 Time of Service: 16:28 Care Management Progress Note Progress Note Text Progress Note Text: Nicolas is s/p Left total hip replacement yesterday. He was doing extremely well today and was discharged home with new services for [facility] RN and PT. He is independent at baseline, but his daughter will be staying with him while he recovers. He has been doing outpatient PT prior to the surgery, and is anxious to get back to that. Nicolas denied any concerns about going home. Discharge Potential Discharge Needs: PCP F/U Appt and Surgical F/U Appt Anticipated Barriers to Discharge: None Identified Patient/Family Education Needs: Review discharge instructions, discuss Ask Me Three Transportation: Private vehicle Plan: Nicolas was discharged home earlier this afternoon with new services of [facility] RN and PT. He will f/u with his PCP and with Dr. Lincoln on 09/19 at 2pm, and continue per his plan of care. Nicolas was transported home by his daughter Social Determinants of Health Screening Social Determinants of health last assessed in clinic: 09/05/24 Will the Patient Participate in the Screening?: Yes Do you worry about having a steady place to live?: no Problems where you live: no known problems In the past 12 months, have you had to go without electric, gas, oil or water in your home?: no 1. Within the past 12 months, we worried whether our food would run out before we got money to buy more.: Never true 2. Within the past 12 months, the food we bought just didn't last and we didn't have money to get more.: Never true Has lack of transportation kept you from medical appointments or from doing things needed for daily living?: no Has anyone in your life made you feel unsafe or unsupported?: no How hard is it for you to pay for the very basics like food, housing, medical care, and heating? Would you say it is:: Not hard at all Do you want help finding or keeping work or a job?: I do not need or want help If for any reason you need help with day-to-day activities such as bathing, preparing meals, shopping, managing finances, etc., do you get the help you need?: I get all the help I need How often do you feel lonely or isolated from those around you?: Never Do you speak a language other than Faroese at home?: No Does the patient want assistance with any of the above?: No Anticipated HH Services Anticipated HH Services at Discharge [facility] PT and RN Anticipated Date of Discharge: 09/05/24. Following Provider: nico.
== END 2024-09-05 15:15 | disposition home health service (06) ==
LOC: MS 14:05
PROVIDERS: Admitting Provider Student in an Organized Health Care Education/Training Program; PCP Family Medicine; Visit Provider Student in an Organized Health Care Education/Training Program
PROC: (CPT 27130; principal; 2024-09-04 11:15)
DX: M16.12 Unilateral primary osteoarthritis, left hip (principal); J44.89 Other specified chronic obstructive pulmonary disease; N18.30 Chronic kidney disease, stage 3 unspecified; M54.31 Sciatica, right side; K52.9 Noninfective gastroenteritis and colitis, unspecified; I87.2 Venous insufficiency (chronic) (peripheral); R60.0 Localized edema; F10.90 Alcohol use, unspecified, uncomplicated; G47.30 Sleep apnea, unspecified; I50.9 Heart failure, unspecified; I13.0 Hypertensive heart and chronic kidney disease with heart failure and stage 1 through stage 4 chronic kidney disease, or unspecified chronic kidney disease; I48.91 Unspecified atrial fibrillation; K21.9 Gastro-esophageal reflux disease without esophagitis; E78.5 Hyperlipidemia, unspecified; F17.290 Nicotine dependence, other tobacco product, uncomplicated; N40.0 Benign prostatic hyperplasia without lower urinary tract symptoms; Z79.899 Other long term (current) drug therapy
CPT/HCPCS: 27130; 20985; 36415; 80048; 94640; 96365; 96366; 97110; 97161; 97530; 99222; 73501; 94664; 99239; C1776; G0378; J0690; J1100; J2250; J2401; J2405; J2704; J8540

== ENCOUNTER 2024-09-12 21:47 | Outpatient (REF) | payer MEDICARE, SELFPAY ==
[2024-09-12 21:58] LABS: Anion Gap 10.7 mmol/L (3-11); CO2 23.3 mmol/L (21.0-32.0); CREATININE 3.1 mg/dL (0.70-1.30); Calcium 8.7 mg/dL (8.5-10.1); Chloride 110 mmol/L (98-107); Estimated GFR 18.86 (mL/min/1.73m2); Glucose 126 mg/dL (74-106); Potassium 5.1 mmol/L (3.5-5.1); Sodium 144 mmol/L (136-145)
[2024-09-12 22:16] LABS: BUN 90 mg/dL (7-18)
== END 2024-09-12 21:48 | disposition home or self-care (01) ==
LOC: LBN 21:47
PROVIDERS: PCP Family Medicine; Visit Provider Student in an Organized Health Care Education/Training Program
DX: Z47.1 Aftercare following joint replacement surgery (principal)
CPT/HCPCS: 80048

== ENCOUNTER 2024-09-19 13:53 | Outpatient (CLI) | payer MEDICARE, SELFPAY ==
--- NOTE | 2024-09-19 14:05 | DI.RAD_ITS ---
Exam(s) XR HIP LT COMPLETE AP PELVIS EXAM: XR HIP LT COMPLETE AP PELVIS CLINICAL HISTORY: 1ST POST OP S/P L REGGIE. TECHNIQUE: 2D digital imaging was performed. COMPARISON: CR XR HIP LT COMPLETE AP PELVIS from 12/08/2023 FINDINGS: Two views There is stable position alignment of the recently placed left hip prosthesis. No fracture or loosen ing evident. IMPRESSION: Stable satisfactory appearance DATA REPOSITORY: RADIATION DOSE DELIVERED:
== END 2024-09-19 13:54 | disposition home or self-care (01) ==
LOC: DIORS 13:53
PROVIDERS: PCP Family Medicine; Referring Provider Family Medicine; Visit Provider Physician Assistant
DX: Z96.642 Presence of left artificial hip joint (principal); Z47.1 Aftercare following joint replacement surgery
CPT/HCPCS: 99024; 73502

== ENCOUNTER → 2024-10-14 13:53 | Outpatient (BNVA) | payer MEDICARE, SELFPAY | PROVIDERS: PCP Family Medicine; Visit Provider Student in an Organized Health Care Education/Training Program | DX: Z47.1 Aftercare following joint replacement surgery (principal); Z96.642 Presence of left artificial hip joint | CPT/HCPCS: 99024 ==

== ENCOUNTER → 2024-10-24 13:55 | Outpatient (BNVA) | payer MEDICARE, SELFPAY | PROVIDERS: PCP Family Medicine; Referring Provider Family Medicine; Visit Provider Physician Assistant Surgical | DX: J44.89 Other specified chronic obstructive pulmonary disease (principal); G47.30 Sleep apnea, unspecified | CPT/HCPCS: 99214 ==

== ENCOUNTER → 2024-11-13 14:11 | Outpatient (BNVA) | payer MEDICARE, SELFPAY | PROVIDERS: PCP Family Medicine; Referring Provider Family Medicine; Visit Provider Nurse Practitioner Gerontology | DX: N40.0 Benign prostatic hyperplasia without lower urinary tract symptoms (principal); R97.20 Elevated prostate specific antigen [PSA]; R39.9 Unspecified symptoms and signs involving the genitourinary system | CPT/HCPCS: 99213; 51798 ==

== ENCOUNTER → 2024-11-25 14:29 | Outpatient (BNVA) | payer MEDICARE, SELFPAY | PROVIDERS: PCP Family Medicine; Referring Provider Family Medicine; Visit Provider Physician Assistant | DX: Z47.1 Aftercare following joint replacement surgery (principal); Z96.642 Presence of left artificial hip joint | CPT/HCPCS: 99024 ==

== ENCOUNTER 2025-01-24 12:50 | Outpatient (CLI) | payer MEDICARE, SELFPAY ==
[2025-01-24 16:29] LABS: Anion Gap 12.1 mmol/L (3-11); BUN 43 mg/dL (7-18); CO2 24.9 mmol/L (21.0-32.0); Calcium 8.8 mg/dL (8.5-10.1); Chloride 105 mmol/L (98-107); Estimated GFR 28.46 (mL/min/1.73m2); Glucose 103 mg/dL (74-106); Potassium 4.8 mmol/L (3.5-5.1); Sodium 142 mmol/L (136-145)
== END 2025-01-24 12:51 | disposition home or self-care (01) ==
LOC: LBO 12:51
PROVIDERS: PCP Family Medicine; Visit Provider Family Medicine
DX: E87.1 Hypo-osmolality and hyponatremia (principal)
CPT/HCPCS: 36415; 80048